=== PATIENT | male | born 1970 | race Caucasian/White ===

== ENCOUNTER 2018-06-15 09:40 | Emergency (ER) | payer MEDICARE, MEDICAID ==
[~2018-06-15] VITALS: Ht 172.7 cm; Wt 186.5 kg
[~2018-06-15 09:40] MED LIST: ASPI-611 PO; ATOR-2 PO; ATRIN INH; CANA300T PO; CHOL100046 PO; DOCU-28 PO; FURO-150 PO; GABA-532 PO; GABA600T2 PO; GEMF600T5 PO; GLIP10TA11 PO; HYDR-3972 PO; IBUP-1986 PO; INSU100V12 SQ; INSU100V36 SQ; IRBE75TA30 PO; LACT1CAP57 PO; LIRA0.6P SQ; LORA10TA7 PO; LORA1TAB PO; MAGN400C PO; METF10004 PO; OMEP20CA4 PO; POLY119P2 PO; POTA8CAP9 PO; PRIM50TA PO; RISP1TAB3 PO; SERT100T PO; SITA100T15 PO; TIZA4CAP PO; TRAZ-218 PO; VITC500T PO
[2018-06-15] MEDS ORDERED: LORazepam 2 mg/ml vial IV ONE (10:10)
[2018-06-15 10:30] LABS: BASOPHILS % (AUTO) 0.3 % (0-1); EOSINOPHILS # (AUTO) 0.1 X10'3 (0-0.9); EOSINOPHILS % (AUTO) 1.4 % (0-6); HEMATOCRIT 35.5 % (42.0-52.0); HEMOGLOBIN 12.2 g/dl (14.0-17.9); LYMPHOCYTES # (AUTO) 1.2 X10'3 (1.1-4.8); LYMPHOCYTES % (AUTO) 26.2 % (21-51); MEAN CORPUSCULAR HEMOGLOBIN 29.2 PG (27.0-31.0); MEAN CORPUSCULAR HGB CONC 34.3 % (33.0-36.5); MEAN PLATELET VOLUME 9.8 FL (7.4-10.4); MONOCYTES # (AUTO) 0.4 X10'3 (0-0.9); MONOCYTES % (AUTO) 8.5 % (2-12); NEUTROPHILS % (AUTO) 63.6 % (42-75); PLATELET COUNT 127 X10'3 (140-440); RED BLOOD COUNT 4.18 X10'6 (4.70-6.10); RED CELL DISTRIBUTION WIDTH 16.1 % (11.5-14.5); WHITE BLOOD COUNT 4.7 X10'3 (4.5-11.0)
[2018-06-15 10:38] VITALS: BP 148/78
[2018-06-15 10:43] LABS: ALANINE AMINOTRANSFERASE 38 U/L (12-78); ALBUMIN 3.2 G/DL (3.4-5.0); ALBUMIN/GLOBULIN RATIO 0.9 (1.1-1.5); ALKALINE PHOSPHATASE 104 IU/L (46-116); ANION GAP 9 (8-16); ASPARTATE AMINO TRANSFERASE 19 U/L (10-37); BILIRUBIN,TOTAL 0.5 MG/DL (0.1-1.0); BLOOD UREA NITROGEN 19 MG/DL (7-18); BUN/CREATININE RATIO 14.4 (5.4-32.0); CALCIUM 8.5 MG/DL (8.5-10.1); CHLORIDE 100 MMOL/L (99-107); CREATININE 1.32 MG/DL (0.60-1.10); GLUCOSE 377 MG/DL (70-104); POTASSIUM 4.5 MMOL/L (3.5-5.1); SODIUM 134 MMOL/L (135-145); TOTAL CARBON DIOXIDE 24.6 MMOL/L (24-32); TOTAL PROTEIN 6.9 G/DL (6.4-8.2); eGFR 58 ML/MIN
== END 2018-06-15 11:43 | disposition home or self-care (01) ==
LOC: ER 09:40
DX: E11.65 Type 2 diabetes mellitus with hyperglycemia (principal); E11.42 Type 2 diabetes mellitus with diabetic polyneuropathy; E86.0 Dehydration; I11.0 Hypertensive heart disease with heart failure; I50.9 Heart failure, unspecified; E78.00 Pure hypercholesterolemia, unspecified; J45.909 Unspecified asthma, uncomplicated; K21.9 Gastro-esophageal reflux disease without esophagitis; Z91.013 Allergy to seafood; Z79.82 Long term (current) use of aspirin; Z79.4 Long term (current) use of insulin; Z79.84 Long term (current) use of oral hypoglycemic drugs; Z79.899 Other long term (current) drug therapy
CPT/HCPCS: 36415; 80053; 85025; 96374; 99284; J2060

== ENCOUNTER 2018-07-04 22:54 | Inpatient (IN) | payer MEDICARE, MEDICAID ==
[~2018-07-04] VITALS: Ht 175.3 cm; Wt 190.0 kg
[~2018-07-04 22:54] MED LIST changes: +METF-438 PO; -METF10004 PO
[2018-07-04 23:22] LABS: BASOPHILS % (AUTO) 0.4 % (0-1); EOSINOPHILS # (AUTO) 0.1 X10'3 (0-0.9); EOSINOPHILS % (AUTO) 1.5 % (0-6); HEMATOCRIT 32.7 % (42.0-52.0); LYMPHOCYTES # (AUTO) 1.3 X10'3 (1.1-4.8); LYMPHOCYTES % (AUTO) 20.8 % (21-51); MEAN CORPUSCULAR HEMOGLOBIN 28.6 PG (27.0-31.0); MEAN CORPUSCULAR HGB CONC 33.8 % (33.0-36.5); MEAN CORPUSCULAR VOLUME 84.8 FL (78-98); MEAN PLATELET VOLUME 8.9 FL (7.4-10.4); MONOCYTES # (AUTO) 0.4 X10'3 (0-0.9); MONOCYTES % (AUTO) 6.3 % (2-12); NEUTROPHILS # (AUTO) 4.3 X10'3 (1.8-7.7); PLATELET COUNT 144 X10'3 (140-440); RED BLOOD COUNT 3.85 X10'6 (4.70-6.10); RED CELL DISTRIBUTION WIDTH 16.3 % (11.5-14.5); WHITE BLOOD COUNT 6.1 X10'3 (4.5-11.0)
[2018-07-04] MEDS ORDERED: nitroGLYCERIN 0.4mg/hour patch TD ONE (23:30)
[2018-07-04 23:31] LABS: PARTIAL THROMBOPLASTIN TIME 28 SECONDS (22-32); PROTHROMBIN TIME 10.2 SECONDS (9.0-12.0)
[2018-07-04] MEDS ORDERED: pantoprazole 40 MG vial IV ONE (23:35)
[2018-07-04 23:39] LABS: ALANINE AMINOTRANSFERASE 35 U/L (12-78); ALBUMIN/GLOBULIN RATIO 0.9 (1.1-1.5); ALKALINE PHOSPHATASE 99 IU/L (46-116); ANION GAP 7 (8-16); ASPARTATE AMINO TRANSFERASE 17 U/L (10-37); BILIRUBIN,TOTAL 0.3 MG/DL (0.1-1.0); BLOOD UREA NITROGEN 15 MG/DL (7-18); BUN/CREATININE RATIO 13.3 (5.4-32.0); CALCIUM 8.6 MG/DL (8.5-10.1); CHLORIDE 100 MMOL/L (99-107); CREATININE 1.13 MG/DL (0.60-1.10); GLUCOSE 293 MG/DL (70-104); POTASSIUM 4.2 MMOL/L (3.5-5.1); SODIUM 133 MMOL/L (135-145); TOTAL CARBON DIOXIDE 25.8 MMOL/L (24-32); TOTAL PROTEIN 6.4 G/DL (6.4-8.2); eGFR 69 ML/MIN
[2018-07-05] VITALS (16 sets, daily range): BP systolic 105–163; BP diastolic 49–79
[2018-07-05] MEDS ORDERED: bisacodyl 10mg suppository rectal RC PRN (02:50)
[2018-07-05] MEDS ORDERED: HYDROcodone/acetaminophen 5mg/325mg tablet PO PRN (02:50)
[2018-07-05] MEDS ORDERED: acetaminophen 650mg rectal suppository RC PRN (02:50)
[2018-07-05] MEDS ORDERED: morphine 2 MG/ML inj. syringe IV PRN (02:50)
[2018-07-05] MEDS ORDERED: magnesium hydroxide 30ml (MOM) UD suspension PO PRN (02:50)
[2018-07-05] MEDS ORDERED: acetaminophen 325mg tablet PO PRN ×2 (02:50)
[2018-07-05] MEDS ORDERED: diphenhydrAMINE 50 mg/ml inj IV PRN (02:50)
[2018-07-05] MEDS ORDERED: metoclopramide 5 mg/ml inj IV PRN (02:50)
[2018-07-05] MEDS ORDERED: diphenhydrAMINE 25mg capsule PO PRN (02:50)
[2018-07-05] MEDS ORDERED: HYDROcodone/acetaminophen 10/325mg tab PO PRN (02:50)
[2018-07-05] MEDS ORDERED: ondansetron/PF 4mg/2ml inj IV PRN (02:50)
[2018-07-05] MEDS ORDERED: HYDROmorphone 1 mg/ml syringe IV PRN ×2 (02:50)
[2018-07-05] MEDS ORDERED: LORazepam 1 MG tablet PO PRN (02:50)
[2018-07-05] MEDS ORDERED: mag hydrox/Alum hydrox/simeth 30ml oral suspension PO PRN (02:50)
[2018-07-05] MEDS ORDERED: dextrose 50%-water 50ml dispensing syringe IV PRN ×2 (03:05)
[2018-07-05] MEDS ORDERED: dextrose ORAL solution 15 GM/59 ML bottle PO PRN ×2 (03:05)
[2018-07-05] MEDS ORDERED: CAFFEINE CITRATE 60 MG/3 ML injection vial IV PRN (03:05)
[2018-07-05] MEDS ORDERED: metoprolol tartrate 1mg/ml inj IV PRN (03:05)
[2018-07-05] MEDS ORDERED: MESSAGE TO PHARMACY PO ONE (03:05)
[2018-07-05] MEDS ORDERED: regadenoson 0.4mg/5ml syringe IV ONE ×2 (03:05→08:58)
[2018-07-05] MEDS ORDERED: glucagon, human recombinant 1mg kit SUBCUT PRN (03:05)
[2018-07-05] MEDS ORDERED: regadenoson 0.4mg/5ml syringe IV PRN (03:11)
[2018-07-05 03:31] LABS: HEMOGLOBIN A1C 10.2 % (4.5-6.2)
[2018-07-05 03:38] LABS: LIPASE 191 U/L (73-393); MAGNESIUM 1.7 MG/DL (1.5-2.4); PHOSPHORUS 3.1 MG/DL (2.3-4.5)
[2018-07-05 04:53] LABS: D-DIMER < 0.19 MG/L FEU (0-0.50)
[2018-07-05] MEDS ORDERED: furosemide 10 MG/1 ML 10ml inj IV SCH (08:00)
[2018-07-05] MEDS ORDERED: CAFFEINE CITRATE 60 MG/3 ML injection vial IV ONE (08:58)
[2018-07-05] MEDS ORDERED: furosemide 40mg/4ml inj IV ONE (11:55)
[2018-07-05] MEDS: loratadine 10mg tablet PO SCH (12:10)
[2018-07-05] MEDS: docusate sod 100mg capsule PO SCH ×2 (12:10→21:01)
[2018-07-05] MEDS: aspirin 81mg tablet.DR PO SCH (12:11)
[2018-07-05] MEDS: atorvastatin 20mg tablet PO SCH (12:12)
[2018-07-05] MEDS: polyethylene glycol 3350 17gm powd pack PO SCH (12:12)
[2018-07-05] MEDS: pantoprazole 40mg Tablet.DR PO SCH (12:13)
[2018-07-05] MEDS: enoxaparin 30mg/0.3ml syringe SQ SCH ×2 (12:16→21:01)
[2018-07-05] MEDS: gabapentin 400mg capsule PO SCH ×3 (12:19→21:01)
[2018-07-05] MEDS: primidone 50mg tablet PO SCH (12:21)
[2018-07-05] MEDS: furosemide 40mg/4ml inj IV SCH ×2 (12:22→21:01)
[2018-07-05] MEDS: sertraline 50mg tablet PO SCH (13:13)
[2018-07-05] MEDS: insulin Lispro (HumaLOG) vial - multi-dose SQ SCH ×3 (13:35→21:00)
[2018-07-05] MEDS ORDERED: insulin glargine (Lantus) pen - multi-dose SQ SCH (21:00)
[2018-07-05] MEDS ORDERED: temazepam 15mg capsule PO PRN (21:00)
[2018-07-05] MEDS: traZODone 50mg tablet PO SCH (21:01)
[2018-07-05] MEDS: gabapentin 300mg capsule PO SCH (21:01)
[2018-07-05] MEDS: morphine 2 MG/ML inj. syringe IV PRN (21:30)
[2018-07-06 05:36] LABS: BASOPHILS % (AUTO) 0.2 % (0-1); EOSINOPHILS # (AUTO) 0.1 X10'3 (0-0.9); EOSINOPHILS % (AUTO) 1.3 % (0-6); HEMATOCRIT 33.3 % (42.0-52.0); HEMOGLOBIN 11.6 g/dl (14.0-17.9); LYMPHOCYTES # (AUTO) 1.1 X10'3 (1.1-4.8); LYMPHOCYTES % (AUTO) 20.4 % (21-51); MEAN CORPUSCULAR HEMOGLOBIN 29.2 PG (27.0-31.0); MEAN CORPUSCULAR HGB CONC 34.7 % (33.0-36.5); MEAN PLATELET VOLUME 8.9 FL (7.4-10.4); MONOCYTES # (AUTO) 0.5 X10'3 (0-0.9); MONOCYTES % (AUTO) 9.2 % (2-12); NEUTROPHILS # (AUTO) 3.6 X10'3 (1.8-7.7); NEUTROPHILS % (AUTO) 68.9 % (42-75); PLATELET COUNT 136 X10'3 (140-440); RED BLOOD COUNT 3.96 X10'6 (4.70-6.10); RED CELL DISTRIBUTION WIDTH 16.2 % (11.5-14.5); WHITE BLOOD COUNT 5.2 X10'3 (4.5-11.0)
[2018-07-06 05:53] LABS: ALANINE AMINOTRANSFERASE 37 U/L (12-78); ALBUMIN 3.2 G/DL (3.4-5.0); ALBUMIN/GLOBULIN RATIO 0.8 (1.1-1.5); ALKALINE PHOSPHATASE 70 IU/L (46-116); ANION GAP 7 (8-16); ASPARTATE AMINO TRANSFERASE 14 U/L (10-37); BILIRUBIN,TOTAL 0.7 MG/DL (0.1-1.0); BLOOD UREA NITROGEN 14 MG/DL (7-18); BUN/CREATININE RATIO 14.7 (5.4-32.0); CALCIUM 8.8 MG/DL (8.5-10.1); CHLORIDE 97 MMOL/L (99-107); CHOL/HDL RATIO 7.5 (0.00-4.99); CHOLESTEROL 120 MG/DL (0-200); CREATININE 0.95 MG/DL (0.60-1.10); GLUCOSE 354 MG/DL (70-104); HDL CHOLESTEROL 16 MG/DL (35-60); LDL CHOLESTEROL 54 MG/DL (50-100); POTASSIUM 3.9 MMOL/L (3.5-5.1); SODIUM 132 MMOL/L (135-145); TOTAL CARBON DIOXIDE 27.8 MMOL/L (24-32); TRIGLYCERIDES 495 MG/DL (20-135); eGFR 84 ML/MIN
[2018-07-06 06:43] VITALS: BP 153/55
[2018-07-06] MEDS: atorvastatin 20mg tablet PO SCH (07:34)
[2018-07-06] MEDS: aspirin 81mg tablet.DR PO SCH (07:36)
[2018-07-06] MEDS: gabapentin 400mg capsule PO SCH ×3 (07:36→20:48)
[2018-07-06] MEDS: docusate sod 100mg capsule PO SCH ×2 (07:36→20:48)
[2018-07-06] MEDS: pantoprazole 40mg Tablet.DR PO SCH (07:36)
[2018-07-06] MEDS: loratadine 10mg tablet PO SCH (07:37)
[2018-07-06] MEDS: enoxaparin 30mg/0.3ml syringe SQ SCH ×2 (07:38→20:49)
[2018-07-06] MEDS: sertraline 50mg tablet PO SCH (07:38)
[2018-07-06] MEDS: polyethylene glycol 3350 17gm powd pack PO SCH (07:38)
[2018-07-06] MEDS: furosemide 40mg/4ml inj IV SCH ×2 (07:39→20:47)
[2018-07-06] MEDS: primidone 50mg tablet PO SCH (07:54)
[2018-07-06] MEDS ORDERED: insulin glargine (Lantus) pen - multi-dose SQ SCH ×2 (09:55→21:00)
[2018-07-06 10:00] VITALS: BP 147/78
[2018-07-06] MEDS: insulin Lispro (HumaLOG) vial - multi-dose SQ SCH ×3 (10:49→18:36)
[2018-07-06 18:00] VITALS: BP 140/78
[2018-07-06] MEDS: insulin glargine (Lantus) pen - multi-dose SQ SCH (20:40)
[2018-07-06] MEDS: traZODone 50mg tablet PO SCH (20:48)
[2018-07-06] MEDS: gabapentin 300mg capsule PO SCH (20:48)
[2018-07-06 22:00] VITALS: BP 115/64
[2018-07-07 05:43] LABS: BASOPHILS % (AUTO) 0.3 % (0-1); EOSINOPHILS # (AUTO) 0.1 X10'3 (0-0.9); EOSINOPHILS % (AUTO) 1.4 % (0-6); HEMATOCRIT 38.1 % (42.0-52.0); LYMPHOCYTES # (AUTO) 1.2 X10'3 (1.1-4.8); LYMPHOCYTES % (AUTO) 23.7 % (21-51); MEAN CORPUSCULAR HEMOGLOBIN 28.7 PG (27.0-31.0); MEAN CORPUSCULAR HGB CONC 34.1 % (33.0-36.5); MEAN CORPUSCULAR VOLUME 84.3 FL (78-98); MEAN PLATELET VOLUME 9.5 FL (7.4-10.4); MONOCYTES # (AUTO) 0.4 X10'3 (0-0.9); MONOCYTES % (AUTO) 7.6 % (2-12); NEUTROPHILS # (AUTO) 3.3 X10'3 (1.8-7.7); PLATELET COUNT 147 X10'3 (140-440); RED BLOOD COUNT 4.52 X10'6 (4.70-6.10); RED CELL DISTRIBUTION WIDTH 16.2 % (11.5-14.5); WHITE BLOOD COUNT 4.9 X10'3 (4.5-11.0)
[2018-07-07 05:58] LABS: ALANINE AMINOTRANSFERASE 39 U/L (12-78); ALBUMIN 3.4 G/DL (3.4-5.0); ALBUMIN/GLOBULIN RATIO 0.8 (1.1-1.5); ALKALINE PHOSPHATASE 71 IU/L (46-116); ANION GAP 8 (8-16); ASPARTATE AMINO TRANSFERASE 26 U/L (10-37); BILIRUBIN,TOTAL 0.7 MG/DL (0.1-1.0); BLOOD UREA NITROGEN 16 MG/DL (7-18); CALCIUM 9.3 MG/DL (8.5-10.1); CHLORIDE 95 MMOL/L (99-107); GLUCOSE 334 MG/DL (70-104); POTASSIUM 3.7 MMOL/L (3.5-5.1); SODIUM 132 MMOL/L (135-145); TOTAL CARBON DIOXIDE 28.6 MMOL/L (24-32); TOTAL PROTEIN 7.5 G/DL (6.4-8.2); eGFR 79 ML/MIN
[2018-07-07 06:00] VITALS: BP 147/77
[2018-07-07] MEDS: insulin Lispro (HumaLOG) vial - multi-dose SQ SCH ×3 (08:22→19:54)
[2018-07-07] MEDS: insulin glargine (Lantus) pen - multi-dose SQ SCH ×2 (08:23→20:00)
[2018-07-07] MEDS: docusate sod 100mg capsule PO SCH ×2 (08:28→20:08)
[2018-07-07] MEDS: enoxaparin 30mg/0.3ml syringe SQ SCH ×2 (08:28→20:08)
[2018-07-07] MEDS: furosemide 40mg/4ml inj IV SCH ×2 (08:28→19:59)
[2018-07-07] MEDS: atorvastatin 20mg tablet PO SCH (08:29)
[2018-07-07] MEDS: sertraline 50mg tablet PO SCH (08:29)
[2018-07-07] MEDS: loratadine 10mg tablet PO SCH (08:29)
[2018-07-07] MEDS: primidone 50mg tablet PO SCH (08:29)
[2018-07-07] MEDS: aspirin 81mg tablet.DR PO SCH (08:29)
[2018-07-07] MEDS: gabapentin 400mg capsule PO SCH ×3 (08:30→20:08)
[2018-07-07] MEDS: polyethylene glycol 3350 17gm powd pack PO SCH (08:30)
[2018-07-07] MEDS: pantoprazole 40mg Tablet.DR PO SCH (08:30)
[2018-07-07 10:00] VITALS: BP 132/73
[2018-07-07] MEDS: morphine 2 MG/ML inj. syringe IV PRN ×2 (12:26→16:26)
[2018-07-07] MEDS: nystatin 15 GM powder TP SCH ×2 (13:15→21:54)
[2018-07-07] MEDS: nitroGLYCERIN 0.4mg SUBLingual tab SL PRN ×2 (15:38→15:47)
[2018-07-07 18:00] VITALS: BP 144/67
[2018-07-07] MEDS: traZODone 50mg tablet PO SCH (20:08)
[2018-07-07] MEDS: gabapentin 300mg capsule PO SCH (20:08)
[2018-07-07 22:00] VITALS: BP 137/71
[2018-07-08 05:12] LABS: BASOPHILS % (AUTO) 0.4 % (0-1); EOSINOPHILS # (AUTO) 0.1 X10'3 (0-0.9); EOSINOPHILS % (AUTO) 2.2 % (0-6); HEMATOCRIT 38.2 % (42.0-52.0); HEMOGLOBIN 12.8 g/dl (14.0-17.9); LYMPHOCYTES # (AUTO) 1.4 X10'3 (1.1-4.8); LYMPHOCYTES % (AUTO) 26.9 % (21-51); MEAN CORPUSCULAR HEMOGLOBIN 28.1 PG (27.0-31.0); MEAN CORPUSCULAR HGB CONC 33.5 % (33.0-36.5); MEAN PLATELET VOLUME 9.1 FL (7.4-10.4); MONOCYTES # (AUTO) 0.4 X10'3 (0-0.9); MONOCYTES % (AUTO) 8.1 % (2-12); NEUTROPHILS # (AUTO) 3.3 X10'3 (1.8-7.7); NEUTROPHILS % (AUTO) 62.4 % (42-75); PLATELET COUNT 162 X10'3 (140-440); RED BLOOD COUNT 4.55 X10'6 (4.70-6.10); RED CELL DISTRIBUTION WIDTH 16.3 % (11.5-14.5); WHITE BLOOD COUNT 5.3 X10'3 (4.5-11.0)
[2018-07-08 05:31] LABS: ALANINE AMINOTRANSFERASE 38 U/L (12-78); ALBUMIN 3.3 G/DL (3.4-5.0); ALBUMIN/GLOBULIN RATIO 0.8 (1.1-1.5); ALKALINE PHOSPHATASE 71 IU/L (46-116); ANION GAP 9 (8-16); ASPARTATE AMINO TRANSFERASE 33 U/L (10-37); BILIRUBIN,TOTAL 0.8 MG/DL (0.1-1.0); BLOOD UREA NITROGEN 18 MG/DL (7-18); BUN/CREATININE RATIO 17.6 (5.4-32.0); CHLORIDE 95 MMOL/L (99-107); CREATININE 1.02 MG/DL (0.60-1.10); GLUCOSE 257 MG/DL (70-104); POTASSIUM 3.8 MMOL/L (3.5-5.1); SODIUM 133 MMOL/L (135-145); TOTAL CARBON DIOXIDE 29.1 MMOL/L (24-32); TOTAL PROTEIN 7.3 G/DL (6.4-8.2); eGFR 78 ML/MIN
[2018-07-08 06:00] VITALS: BP 148/76
[2018-07-08] MEDS: polyethylene glycol 3350 17gm powd pack PO SCH (07:43)
[2018-07-08] MEDS: loratadine 10mg tablet PO SCH (07:47)
[2018-07-08] MEDS: gabapentin 400mg capsule PO SCH ×2 (07:47→13:11)
[2018-07-08] MEDS: pantoprazole 40mg Tablet.DR PO SCH (07:47)
[2018-07-08] MEDS: aspirin 81mg tablet.DR PO SCH (07:47)
[2018-07-08] MEDS: atorvastatin 20mg tablet PO SCH (07:47)
[2018-07-08] MEDS: sertraline 50mg tablet PO SCH (07:47)
[2018-07-08] MEDS: docusate sod 100mg capsule PO SCH (07:47)
[2018-07-08] MEDS: primidone 50mg tablet PO SCH (07:48)
[2018-07-08] MEDS: enoxaparin 30mg/0.3ml syringe SQ SCH (07:50)
[2018-07-08] MEDS: furosemide 40mg/4ml inj IV SCH (07:50)
[2018-07-08] MEDS: nystatin 15 GM powder TP SCH ×2 (08:00→13:13)
[2018-07-08] MEDS: insulin glargine (Lantus) pen - multi-dose SQ SCH (08:59)
[2018-07-08] MEDS: insulin Lispro (HumaLOG) vial - multi-dose SQ SCH ×2 (09:01→13:35)
[2018-07-08 10:00] VITALS: BP 142/61
== END 2018-07-08 17:11 | disposition home or self-care (01) | DRG 392 ==
LOC: ER 22:54 → ED HOLD 07-05 02:48 → EDBEDREQ 07-05 03:32 → ORTHO 4S 07-05 04:05
PROVIDERS: ADMIT Family Medicine; ATTEND Internal Medicine
PROC: 4A02XM4 Measurement of Cardiac Total Activity, External Approach (ICD-10-PCS; 2018-07-05)
PROC: 3E033HZ Introduction of Radioactive Substance into Peripheral Vein, Percutaneous Approach (ICD-10-PCS; 2018-07-05)
PROC: 5A09357 Assistance with Respiratory Ventilation, Less than 24 Consecutive Hours, Continuous Positive Airway Pressure (ICD-10-PCS; principal; 2018-07-08)
DX: R10.13 Epigastric pain (principal); Z68.44 Body mass index [BMI] 60.0-69.9, adult; I27.81 Cor pulmonale (chronic); E66.01 Morbid (severe) obesity due to excess calories; E11.42 Type 2 diabetes mellitus with diabetic polyneuropathy; E78.00 Pure hypercholesterolemia, unspecified; E78.5 Hyperlipidemia, unspecified; I10 Essential (primary) hypertension; F32.9 Major depressive disorder, single episode, unspecified; D64.9 Anemia, unspecified; E11.65 Type 2 diabetes mellitus with hyperglycemia; F41.9 Anxiety disorder, unspecified; G25.0 Essential tremor; G47.33 Obstructive sleep apnea (adult) (pediatric); J45.909 Unspecified asthma, uncomplicated; K21.9 Gastro-esophageal reflux disease without esophagitis; Z91.013 Allergy to seafood; Z79.899 Other long term (current) drug therapy; Z79.82 Long term (current) use of aspirin; Z79.4 Long term (current) use of insulin; Z87.891 Personal history of nicotine dependence; Z82.49 Family history of ischemic heart disease and other diseases of the circulatory system; Z83.3 Family history of diabetes mellitus
CPT/HCPCS: 36415; 71045; 78452; 80053; 80061; 80184; 80188; 82948; 83036; 83690; 83735; 83880; 84100; 84484; 85025; 85379; 85610; 85730; 87070; 93005; 93017; 93306; 96374; 99285; A9500; C9113; J1650; J1815; J1940; J2270

== ENCOUNTER 2019-03-25 16:54 | Emergency (ER) | payer MEDICARE, MEDICAID ==
[~2019-03-25] VITALS: Ht 175.3 cm; Wt 201.8 kg
[~2019-03-25 16:54] MED LIST changes: -ATRIN INH; -CANA300T PO; -DOCU-28 PO; +GABA600T13 PO; -GABA600T2 PO; -GEMF600T5 PO; -GLIP10TA11 PO; -HYDR-3972 PO; -IBUP-1986 PO; -INSU100V12 SQ; -IRBE75TA30 PO; -LIRA0.6P SQ; -MAGN400C PO; +MECL12.584 PO; +ONDA8TAB6 PO; -RISP1TAB3 PO; -SITA100T15 PO; -TIZA4CAP PO; -TRAZ-218 PO; +TRAZ-251 PO
[2019-03-25 17:25] LABS: PARTIAL THROMBOPLASTIN TIME 25 SECONDS (22-32)
[2019-03-25 17:27] LABS: ALANINE AMINOTRANSFERASE 29 U/L (12-78); ALBUMIN 3.4 G/DL (3.4-5.0); ALBUMIN/GLOBULIN RATIO 0.9 (1.1-1.5); ALKALINE PHOSPHATASE 76 IU/L (46-116); ANION GAP 9 (8-16); ASPARTATE AMINO TRANSFERASE 18 U/L (10-37); BILIRUBIN,TOTAL 0.4 MG/DL (0.1-1.0); BLOOD UREA NITROGEN 21 MG/DL (7-18); BUN/CREATININE RATIO 16.7 (5.4-32.0); CALCIUM 8.9 MG/DL (8.5-10.1); CHLORIDE 102 MMOL/L (99-107); CREATININE 1.26 MG/DL (0.60-1.10); GLUCOSE 260 MG/DL (70-104); POTASSIUM 4.7 MMOL/L (3.5-5.1); SODIUM 136 MMOL/L (135-145); TOTAL CARBON DIOXIDE 25.1 MMOL/L (24-32); TOTAL PROTEIN 7.4 G/DL (6.4-8.2); eGFR 61 ML/MIN
[2019-03-25 18:05] LABS: BASOPHILS # (AUTO) 0.1 X10'3 (0-0.2); BASOPHILS % (AUTO) 1.3 % (0-1); EOSINOPHILS # (AUTO) 0.1 X10'3 (0-0.9); EOSINOPHILS % (AUTO) 1.6 % (0-6); HEMATOCRIT 37.5 % (42.0-52.0); HEMOGLOBIN 12.3 g/dl (14.0-17.9); LYMPHOCYTES # (AUTO) 1.4 X10'3 (1.1-4.8); MEAN CORPUSCULAR HGB CONC 32.9 g/dL (33.0-36.5); MEAN CORPUSCULAR VOLUME 82.1 FL (78-98); MEAN PLATELET VOLUME 8.4 FL (7.4-10.4); MONOCYTES # (AUTO) 0.7 X10'3 (0-0.9); MONOCYTES % (AUTO) 10.1 % (2-12); NEUTROPHILS # (AUTO) 4.4 X10'3 (1.8-7.7); PLATELET COUNT 158 X10'3 (140-440); RED BLOOD COUNT 4.56 X10'6 (4.70-6.10); RED CELL DISTRIBUTION WIDTH 18.8 % (11.5-14.5); WHITE BLOOD COUNT 6.7 X10'3 (4.5-11.0)
[2019-03-25] MEDS ORDERED: GEMF600T89 PO (18:09)
[2019-03-25] MEDS ORDERED: EMPA10TA PO (18:09)
[2019-03-25] MEDS ORDERED: BENZ1TAB7 PO (18:09)
[2019-03-25] MEDS ORDERED: IRBE75TA9 PO (18:09)
[2019-03-25] MEDS ORDERED: INSU200I (18:09)
[2019-03-25] MEDS ORDERED: GABA800T11 PO (18:09)
[2019-03-25] MEDS ORDERED: PROP20TA6 PO (18:09)
[2019-03-25] MEDS ORDERED: INSU300I3 (18:11)
[2019-03-25] MEDS ORDERED: DULA1.5P (18:11)
[2019-03-25] MEDS ORDERED: MELA3TAB PO (18:11)
[2019-03-25 18:22] LABS: ANISOCYTOSIS 2+; PLATELET ESTIMATE NORMAL; POLYCHROMASIA FEW
[2019-03-25 19:52] LABS: LIPASE 173 U/L (73-393)
[2019-03-25 21:31] VITALS: BP 148/95
== END 2019-03-25 21:34 | disposition home or self-care (01) ==
LOC: ER 16:54
DX: R07.89 Other chest pain (principal); R06.02 Shortness of breath; R05 Cough; E11.42 Type 2 diabetes mellitus with diabetic polyneuropathy; E78.00 Pure hypercholesterolemia, unspecified; I10 Essential (primary) hypertension; J45.909 Unspecified asthma, uncomplicated; K21.9 Gastro-esophageal reflux disease without esophagitis; Z91.013 Allergy to seafood; Z79.82 Long term (current) use of aspirin; Z79.84 Long term (current) use of oral hypoglycemic drugs; Z79.4 Long term (current) use of insulin; Z79.899 Other long term (current) drug therapy
CPT/HCPCS: 36415; 71045; 80053; 83690; 84484; 85025; 85610; 85730; 93005; 99284

== ENCOUNTER 2019-05-21 23:17 | Emergency (ER) | payer MEDICARE, MEDICAID ==
[~2019-05-21] VITALS: Ht 175.3 cm; Wt 194.0 kg
[~2019-05-21 23:17] MED LIST changes: -ATOR-2 PO; +BENZ1TAB7 PO; +DULA1.5P SQ; +EMPA10TA PO; -GABA600T13 PO; +GABA800T11 PO; +GEMF600T89 PO; -INSU100V36 SQ; +INSU200I SQ; +INSU300I3 SQ; +IRBE75TA9 PO; -LACT1CAP57 PO; -LORA1TAB PO; -MECL12.584 PO; +MELA3TAB64 PO; +POTA8CAP20 PO; -POTA8CAP9 PO; +PROP20TA6 PO; -SERT100T PO
[2019-05-21 23:44] LABS: BASOPHILS % (AUTO) 0.5 % (0-1); EOSINOPHILS # (AUTO) 0.1 X10'3 (0-0.9); EOSINOPHILS % (AUTO) 0.6 % (0-6); HEMATOCRIT 37.7 % (42.0-52.0); HEMOGLOBIN 12.2 g/dl (14.0-17.9); LYMPHOCYTES # (AUTO) 0.8 X10'3 (1.1-4.8); LYMPHOCYTES % (AUTO) 7.5 % (21-51); MEAN CORPUSCULAR HEMOGLOBIN 26.9 PG (27.0-31.0); MEAN CORPUSCULAR HGB CONC 32.4 g/dL (33.0-36.5); MEAN CORPUSCULAR VOLUME 83.3 FL (78-98); MEAN PLATELET VOLUME 7.8 FL (7.4-10.4); MONOCYTES # (AUTO) 0.4 X10'3 (0-0.9); NEUTROPHILS # (AUTO) 8.8 X10'3 (1.8-7.7); NEUTROPHILS % (AUTO) 87.4 % (42-75); PLATELET COUNT 162 X10'3 (140-440); RED BLOOD COUNT 4.53 X10'6 (4.70-6.10); RED CELL DISTRIBUTION WIDTH 17.9 % (11.5-14.5); WHITE BLOOD COUNT 10.1 X10'3 (4.5-11.0)
[2019-05-21 23:53] LABS: ALANINE AMINOTRANSFERASE 30 U/L (12-78); ALBUMIN 3.3 G/DL (3.4-5.0); ALBUMIN/GLOBULIN RATIO 0.8 (1.1-1.5); ALKALINE PHOSPHATASE 73 IU/L (46-116); ANION GAP 9 (8-16); ASPARTATE AMINO TRANSFERASE 16 U/L (10-37); BILIRUBIN,TOTAL 0.5 MG/DL (0.1-1.0); BLOOD UREA NITROGEN 16 MG/DL (7-18); BUN/CREATININE RATIO 13.4 (5.4-32.0); CALCIUM 8.9 MG/DL (8.5-10.1); CHLORIDE 104 MMOL/L (99-107); CREATININE 1.19 MG/DL (0.60-1.10); GLUCOSE 141 MG/DL (70-104); POTASSIUM 4.6 MMOL/L (3.5-5.1); SODIUM 141 MMOL/L (135-145); TOTAL CARBON DIOXIDE 28.4 MMOL/L (24-32); TOTAL PROTEIN 7.2 G/DL (6.4-8.2); eGFR 65 ML/MIN
[2019-05-22 01:25] LABS: CLARITY,URINE CLEAR (Clear); COLOR,URINE YELLOW (Yellow); GLUCOSE, URINE >=1000 mg/dl (Neg); KETONES,URINE NEGATIVE (Neg); LEUKOCYTE ESTERASE ,URINE NEGATIVE (Neg); NITRITES, URINE NEGATIVE (Neg); OCCULT BLOOD,URINE NEGATIVE (Neg); PROTEIN,URINE NEGATIVE (Neg); UROBILINOGEN,URINE 0.2 E.U/dL (0.2-1.0)
[2019-05-22 01:26] LABS: ETHANOL < 0.010 GM/DL (0.0-0.010)
[2019-05-22 01:32] LABS: UA COLLECTION TYPE URINAL
[2019-05-22] MEDS ORDERED: LORazepam 2 mg/ml vial IV ONE (01:45)
[2019-05-22 02:05] VITALS: BP 149/71
[2019-05-22 02:31] LABS: BACTERIA,URINE NONE SEEN /HPF (Neg); RBC,URINE 0-2 /HPF (0-2); SQUAMOUS EPITHELIAL CELL,UR FEW /LPF (FEW); WBC,URINE NONE SEEN /HPF (0-4)
[2019-05-22 02:32] LABS: MUCUS STRANDS NONE SEEN /LPF (Neg); STARCH,URINE FEW /HPF (NEGATIVE)
== END 2019-05-22 02:18 | disposition home or self-care (01) ==
LOC: ER 23:17
DX: R25.1 Tremor, unspecified (principal); M54.9 Dorsalgia, unspecified; E66.01 Morbid (severe) obesity due to excess calories; E78.00 Pure hypercholesterolemia, unspecified; I10 Essential (primary) hypertension; J45.909 Unspecified asthma, uncomplicated; G47.30 Sleep apnea, unspecified; K21.9 Gastro-esophageal reflux disease without esophagitis; E11.9 Type 2 diabetes mellitus without complications; F41.9 Anxiety disorder, unspecified; F32.9 Major depressive disorder, single episode, unspecified; Z87.891 Personal history of nicotine dependence; Z91.013 Allergy to seafood; Z79.82 Long term (current) use of aspirin; Z79.4 Long term (current) use of insulin; Z79.899 Other long term (current) drug therapy
CPT/HCPCS: 36415; 80053; 80320; 81001; 85025; 85610; 96374; 99283; J2060

== ENCOUNTER 2019-05-25 10:17 | Inpatient (IN) | payer MEDICARE, MEDICAID ==
[~2019-05-25] VITALS: Ht 172.7 cm; Wt 220.0 kg
[2019-05-25] MEDS ORDERED: acetaminophen 325mg tablet PO STA (10:43)
[2019-05-25] MEDS ORDERED: CefTRIAXone 2gm/D5W 50ml 50 ML IV ONE (10:45)
[2019-05-25] MEDS ORDERED: normal saline 1000ML IV soln IV ONE (10:45)
--- NOTE | 2019-05-25 11:10 | NUR ---
BANDAGE REMOVED FROM LEFT HEEL: CRACKED SKIN NOTED
[2019-05-25 11:35] LABS: ALANINE AMINOTRANSFERASE 41 U/L (12-78); ALBUMIN 2.6 G/DL (3.4-5.0); ALBUMIN/GLOBULIN RATIO 0.6 (1.1-1.5); ALKALINE PHOSPHATASE 58 IU/L (46-116); ANION GAP 9 (8-16); ASPARTATE AMINO TRANSFERASE 28 U/L (10-37); BILIRUBIN,TOTAL 0.8 MG/DL (0.1-1.0); BLOOD UREA NITROGEN 29 MG/DL (7-18); BUN/CREATININE RATIO 16.2 (5.4-32.0); CALCIUM 8.4 MG/DL (8.5-10.1); CHLORIDE 101 MMOL/L (99-107); CREATININE 1.79 MG/DL (0.60-1.10); GLUCOSE 205 MG/DL (70-104); MAGNESIUM 2.3 MG/DL (1.5-2.4); POTASSIUM 3.6 MMOL/L (3.5-5.1); SODIUM 134 MMOL/L (135-145); TOTAL CARBON DIOXIDE 23.7 MMOL/L (24-32); TOTAL PROTEIN 7.1 G/DL (6.4-8.2); eGFR 41 ML/MIN
[2019-05-25 11:38] LABS: PARTIAL THROMBOPLASTIN TIME 37 SECONDS (22-32)
[2019-05-25 11:50] LABS: BASOPHILS % (AUTO) 0.5 % (0-1); EOSINOPHILS % (AUTO) 0.4 % (0-6); HEMATOCRIT 29.3 % (42.0-52.0); HEMOGLOBIN 9.5 g/dl (14.0-17.9); LYMPHOCYTES % (AUTO) 12.9 % (21-51); MEAN CORPUSCULAR HEMOGLOBIN 26.8 PG (27.0-31.0); MEAN CORPUSCULAR HGB CONC 32.6 g/dL (33.0-36.5); MEAN CORPUSCULAR VOLUME 82.3 FL (78-98); MEAN PLATELET VOLUME 8.7 FL (7.4-10.4); MONOCYTES # (AUTO) 0.8 X10'3 (0-0.9); MONOCYTES % (AUTO) 9.6 % (2-12); NEUTROPHILS # (AUTO) 6.2 X10'3 (1.8-7.7); NEUTROPHILS % (AUTO) 76.6 % (42-75); PLATELET COUNT 130 X10'3 (140-440); RED BLOOD COUNT 3.56 X10'6 (4.70-6.10); RED CELL DISTRIBUTION WIDTH 18.4 % (11.5-14.5); WHITE BLOOD COUNT 8.1 X10'3 (4.5-11.0)
[2019-05-25 12:11] LABS: CLARITY,URINE CLOUDY (Clear); COLOR,URINE YELLOW (Yellow); GLUCOSE, URINE >=1000 mg/dl (Neg); KETONES,URINE NEGATIVE (Neg); LEUKOCYTE ESTERASE ,URINE TRACE (Neg); NITRITES, URINE NEGATIVE (Neg); OCCULT BLOOD,URINE TRACE-INTACT (Neg); PROTEIN,URINE NEGATIVE (Neg); UROBILINOGEN,URINE 0.2 E.U/dL (0.2-1.0)
[2019-05-25 12:15] LABS: UA COLLECTION TYPE CLN CATCH MIDSTREAM
[2019-05-25 12:17] LABS: SQUAMOUS EPITHELIAL CELL,UR MANY /LPF (FEW)
[2019-05-25 12:18] LABS: BACTERIA,URINE 1+ /HPF (Neg); RBC,URINE 0-2 /HPF (0-2); WBC CLUMPS,URINE FEW /HPF (NEGATIVE)
[2019-05-25 12:19] LABS: TRANSITIONAL EPI CELLS,URINE MODERATE /HPF
[2019-05-25] MEDS ORDERED: TIZA4TAB5 PO (12:58)
[2019-05-25] MEDS ORDERED: OMEG1CAP2 PO (12:58)
[2019-05-25] MEDS ORDERED: BENZ1TAB7 PO (12:58)
[2019-05-25] MEDS ORDERED: MAGN100T5 PO (12:58)
[2019-05-25] MEDS ORDERED: VITA1TAB20 PO (12:58)
[2019-05-25] MEDS ORDERED: GARL400T14 PO (12:58)
[2019-05-25] MEDS ORDERED: EMPA25TA PO (12:58)
--- NOTE | 2019-05-25 13:00 | NUR ---
Patient in room [facility]. I have received report from Tereso SMART and had the opportunity to ask questions and assume patient care.
[2019-05-25] MEDS ORDERED: BUDE10.2 PO (13:01)
[2019-05-25] MEDS ORDERED: ALBU17AE26 INH (13:01)
[2019-05-25 14:14] VITALS: BP 94/55
[2019-05-25] MEDS ORDERED: magnesium 4gm in 100ml NS 100 ML IV PRN (14:45)
[2019-05-25] MEDS ORDERED: magnesium 2GM in 50ml NS 50 ML IV PRN (14:45)
[2019-05-25] MEDS ORDERED: magnesium Cl slow-release 64mg tablet PO PRN (14:45)
[2019-05-25] MEDS ORDERED: potassium CL 10mEq/100ml bag 100 ML IV PRN ×2 (14:45)
[2019-05-25] MEDS ORDERED: ondansetron/PF 4mg/2ml inj IV PRN (14:45)
[2019-05-25] MEDS ORDERED: acetaminophen 325mg tablet PO PRN (14:45)
[2019-05-25] MEDS ORDERED: potassium Cl 20 mEq SR tablet PO PRN ×2 (14:45)
[2019-05-25] MEDS: normal saline 1000ml 1,000 ML IV SCH (16:36)
[2019-05-25] MEDS: ceFAZolin 1GM/D5W- ADD-VANTAGE 50 ML IV SCH ×2 (16:40→23:35)
[2019-05-25 18:00] VITALS: BP 123/44
--- NOTE | 2019-05-25 18:15 | NUR ---
Patient in room [facility]. I have received report from BING Martinez and had the opportunity to ask questions and assume patient care.
--- NOTE | 2019-05-25 18:30 | NUR ---
Problems reprioritized. Patient report given, questions answered & plan of care reviewed with Stephen SMART.
[2019-05-25] MEDS: heparin, porcine 5000 units/ml vial SQ SCH (19:15)
[2019-05-25] MEDS ORDERED: pneumococcal 23-VAL P-sac vacc 25 mcg/0.5ml vial IMVAC ONE (19:35)
[2019-05-25 19:41] LABS: HEMOGLOBIN A1C 6.5 % (4.5-6.2)
[2019-05-25] MEDS ORDERED: dextrose 50%-water 50ml dispensing syringe IV PRN ×2 (20:50)
[2019-05-25] MEDS ORDERED: dextrose ORAL solution 15 GM/59 ML bottle PO PRN ×2 (20:50)
[2019-05-25] MEDS ORDERED: tizanidine 4mg tablet PO PRN (20:50)
[2019-05-25] MEDS ORDERED: MESSAGE TO PHARMACY PO ONE (20:50)
[2019-05-25] MEDS ORDERED: glucagon, human recombinant 1mg kit SUBCUT PRN (20:50)
[2019-05-25] MEDS: insulin Lispro (HumaLOG) vial - multi-dose SQ SCH (21:00)
[2019-05-25] MEDS: insulin glargine (Lantus) pen - multi-dose SQ SCH (21:00)
[2019-05-25] MEDS ORDERED: insulin glargine (Lantus) pen - multi-dose SQ SCH (21:00)
[2019-05-25] MEDS ORDERED: albuterol 2.5 MG/3 ML nebule NEB PRN (22:15)
[2019-05-25] MEDS: traZODone 50mg tablet PO SCH (22:28)
[2019-05-25] MEDS: morphine 2 MG/ML inj. syringe IV PRN (22:28)
[2019-05-25] MEDS: lactobacillus rhamnosus 10,000 MMU CELLS/CAPSULE PO SCH (22:29)
[2019-05-25] MEDS: benztropine 1mg tablet PO SCH (22:30)
[2019-05-25] MEDS: gabapentin 400mg capsule PO SCH (23:35)
[2019-05-26] VITALS: BP 153/47
[2019-05-26] MEDS: normal saline 1000ml 1,000 ML IV SCH ×3 (00:43→22:45)
[2019-05-26] MEDS: albuterol 2.5 MG/3 ML nebule NEB SCH ×4 (02:56→21:13)
[2019-05-26] MEDS: morphine 2 MG/ML inj. syringe IV PRN (04:12)
[2019-05-26 05:18] LABS: BASOPHILS # (AUTO) 0.1 X10'3 (0-0.2); BASOPHILS % (AUTO) 0.6 % (0-1); EOSINOPHILS % (AUTO) 0.6 % (0-6); HEMATOCRIT 26.6 % (42.0-52.0); HEMOGLOBIN 8.8 g/dl (14.0-17.9); LYMPHOCYTES # (AUTO) 1.1 X10'3 (1.1-4.8); LYMPHOCYTES % (AUTO) 13.1 % (21-51); MEAN PLATELET VOLUME 8.4 FL (7.4-10.4); MONOCYTES # (AUTO) 0.8 X10'3 (0-0.9); MONOCYTES % (AUTO) 9.8 % (2-12); NEUTROPHILS # (AUTO) 6.2 X10'3 (1.8-7.7); NEUTROPHILS % (AUTO) 75.9 % (42-75); PLATELET COUNT 133 X10'3 (140-440); RED BLOOD COUNT 3.25 X10'6 (4.70-6.10); RED CELL DISTRIBUTION WIDTH 18.8 % (11.5-14.5); WHITE BLOOD COUNT 8.1 X10'3 (4.5-11.0)
[2019-05-26 05:25] LABS: ALBUMIN 2.3 G/DL (3.4-5.0); ANION GAP 11 (8-16); BLOOD UREA NITROGEN 18 MG/DL (7-18); BUN/CREATININE RATIO 14.3 (5.4-32.0); CALCIUM 8.5 MG/DL (8.5-10.1); CHLORIDE 104 MMOL/L (99-107); CREATININE 1.26 MG/DL (0.60-1.10); GLUCOSE 123 MG/DL (70-104); MAGNESIUM 2.3 MG/DL (1.5-2.4); POTASSIUM 3.9 MMOL/L (3.5-5.1); SODIUM 138 MMOL/L (135-145); TOTAL CARBON DIOXIDE 22.6 MMOL/L (24-32); eGFR 61 ML/MIN
[2019-05-26 06:30] VITALS: BP 126/60
--- NOTE | 2019-05-26 06:33 | NUR ---
Patient in room [facility]. I have received report from Stephen and had the opportunity to ask questions and assume patient care.
[2019-05-26] MEDS: HYDROcodone/acetaminophen 5mg/325mg tablet PO PRN ×3 (06:40→17:05)
[2019-05-26] MEDS: K and/or MAG REPLACEMENT MC SCH (06:43)
--- NOTE | 2019-05-26 06:43 | NUR ---
Problems reprioritized. Patient report given, questions answered & plan of care reviewed with BING Greene.
[2019-05-26] MEDS: ceFAZolin 1GM/D5W- ADD-VANTAGE 50 ML IV SCH ×3 (07:59→23:08)
[2019-05-26] MEDS: pantoprazole 40mg Tablet.DR PO SCH (07:59)
[2019-05-26] MEDS: gabapentin 400mg capsule PO SCH ×3 (07:59→23:08)
[2019-05-26] MEDS: metFORMIN 500mg tablet PO SCH ×2 (07:59→19:30)
[2019-05-26] MEDS: potassium chloride 8mEq ER tablet PO SCH ×2 (07:59→19:33)
[2019-05-26] MEDS: benztropine 1mg tablet PO SCH ×2 (07:59→21:04)
[2019-05-26] MEDS: gemfibrozil 600mg tablet PO SCH ×2 (07:59→19:33)
[2019-05-26] MEDS: vitamin B comp w/Vit. C tab 1 TAB TABLET PO SCH ×2 (07:59→19:33)
[2019-05-26] MEDS: aspirin 81mg tablet.DR PO SCH (07:59)
[2019-05-26] MEDS: vitamin D (cholecalciferol) 1,000 unit tablet PO SCH (08:00)
[2019-05-26] MEDS: lactobacillus rhamnosus 10,000 MMU CELLS/CAPSULE PO SCH ×2 (08:00→19:29)
[2019-05-26] MEDS: heparin, porcine 5000 units/ml vial SQ SCH ×2 (08:00→19:33)
[2019-05-26] MEDS: propranolol 10mg tablet PO SCH ×2 (08:00→19:32)
[2019-05-26] MEDS: furosemide 20MG tablet PO SCH ×2 (08:00→19:33)
[2019-05-26] MEDS: insulin Lispro (HumaLOG) vial - multi-dose SQ SCH ×3 (08:03→20:59)
[2019-05-26] MEDS: budesonide 0.5mg/2ml UD nebule IH SCH ×2 (08:48→21:12)
--- NOTE | 2019-05-26 09:57 | NUR ---
DM consult: Pt with A1c 6.5; DM ed not warranted at this time. Will continue to follow. Addendum: 05/26/19 at [address] Amended: Links added.
[2019-05-26 11:00] VITALS: BP 117/50
[2019-05-26] MEDS: gabapentin 300mg capsule PO SCH ×2 (11:41→17:02)
--- NOTE | 2019-05-26 13:24 | NUR ---
Spoke with Dr Shea and asked her if she wants us to follow the diabetic protocol or if she wants us to give 15 units of insulin TID. She stated 15 units is only half the dose of what he takes at home. Therefore she wants me to give 15 units of insulin TID as a "give".
[2019-05-26] MEDS: loratadine 10mg tablet PO SCH (17:02)
[2019-05-26 18:00] VITALS: BP 141/55
--- NOTE | 2019-05-26 18:15 | NUR ---
Patient in room [facility]. I have received report from Rajesh and had the opportunity to ask questions and assume patient care.
--- NOTE | 2019-05-26 18:24 | NUR ---
Problems reprioritized. Patient report given, questions answered & plan of care reviewed with Josselyn.
[2019-05-26 19:34] VITALS: BP 124/52
[2019-05-26] MEDS: insulin glargine (Lantus) pen - multi-dose SQ SCH (21:03)
[2019-05-26] MEDS: losartan 25mg tablet PO SCH (21:03)
[2019-05-26] MEDS: traZODone 50mg tablet PO SCH (21:04)
[2019-05-27] VITALS: BP 154/55
--- NOTE | 2019-05-27 00:07 | NUR ---
Problems reprioritized. Patient report given, questions answered & plan of care reviewed with Candida SMART.
[2019-05-27] MEDS: albuterol 2.5 MG/3 ML nebule NEB SCH ×4 (02:38→20:42)
[2019-05-27 05:16] LABS: BASOPHILS % (AUTO) 0.3 % (0-1); EOSINOPHILS # (AUTO) 0.1 X10'3 (0-0.9); EOSINOPHILS % (AUTO) 1.4 % (0-6); HEMATOCRIT 26.5 % (42.0-52.0); HEMOGLOBIN 8.7 g/dl (14.0-17.9); LYMPHOCYTES % (AUTO) 16.2 % (21-51); MEAN CORPUSCULAR HGB CONC 32.8 g/dL (33.0-36.5); MEAN CORPUSCULAR VOLUME 82.4 FL (78-98); MEAN PLATELET VOLUME 8.1 FL (7.4-10.4); MONOCYTES # (AUTO) 0.6 X10'3 (0-0.9); MONOCYTES % (AUTO) 9.6 % (2-12); NEUTROPHILS # (AUTO) 4.5 X10'3 (1.8-7.7); NEUTROPHILS % (AUTO) 72.5 % (42-75); PLATELET COUNT 162 X10'3 (140-440); RED BLOOD COUNT 3.22 X10'6 (4.70-6.10); RED CELL DISTRIBUTION WIDTH 18.5 % (11.5-14.5); WHITE BLOOD COUNT 6.2 X10'3 (4.5-11.0)
[2019-05-27 05:33] LABS: ANION GAP 9 (8-16); BLOOD UREA NITROGEN 15 MG/DL (7-18); BUN/CREATININE RATIO 13.6 (5.4-32.0); CALCIUM 8.4 MG/DL (8.5-10.1); CHLORIDE 105 MMOL/L (99-107); GLUCOSE 116 MG/DL (70-104); POTASSIUM 4.2 MMOL/L (3.5-5.1); SODIUM 137 MMOL/L (135-145); TOTAL CARBON DIOXIDE 23.4 MMOL/L (24-32); eGFR 71 ML/MIN
[2019-05-27 06:30] VITALS: BP 126/55
--- NOTE | 2019-05-27 06:30 | NUR ---
Patient in room [facility]. I have received report from BING Tirado and had the opportunity to ask questions and assume patient care.
[2019-05-27] MEDS: normal saline 1000ml 1,000 ML IV SCH ×2 (06:43→09:38)
[2019-05-27] MEDS: K and/or MAG REPLACEMENT MC SCH (07:22)
[2019-05-27] MEDS: budesonide 0.5mg/2ml UD nebule IH SCH ×2 (07:22→20:42)
[2019-05-27] MEDS: benztropine 1mg tablet PO SCH ×2 (09:23→21:36)
[2019-05-27] MEDS: ceFAZolin 1GM/D5W- ADD-VANTAGE 50 ML IV SCH ×3 (09:24→23:17)
[2019-05-27] MEDS: lactobacillus rhamnosus 10,000 MMU CELLS/CAPSULE PO SCH ×2 (09:24→21:35)
[2019-05-27] MEDS: propranolol 10mg tablet PO SCH ×2 (09:25→21:36)
[2019-05-27] MEDS: aspirin 81mg tablet.DR PO SCH (09:25)
[2019-05-27] MEDS: potassium chloride 8mEq ER tablet PO SCH ×2 (09:25→21:39)
[2019-05-27] MEDS: pantoprazole 40mg Tablet.DR PO SCH (09:25)
[2019-05-27] MEDS: furosemide 20MG tablet PO SCH ×2 (09:25→21:36)
[2019-05-27] MEDS: gemfibrozil 600mg tablet PO SCH ×2 (09:25→21:35)
[2019-05-27] MEDS: gabapentin 400mg capsule PO SCH ×3 (09:25→23:20)
[2019-05-27] MEDS: vitamin B comp w/Vit. C tab 1 TAB TABLET PO SCH ×2 (09:25→21:36)
[2019-05-27] MEDS: metFORMIN 500mg tablet PO SCH ×2 (09:26→21:36)
[2019-05-27] MEDS: heparin, porcine 5000 units/ml vial SQ SCH ×2 (09:26→21:35)
[2019-05-27] MEDS: vitamin D (cholecalciferol) 1,000 unit tablet PO SCH (09:26)
[2019-05-27] MEDS: insulin Lispro (HumaLOG) vial - multi-dose SQ SCH ×3 (09:32→21:29)
[2019-05-27 11:00] VITALS: BP 127/52
[2019-05-27] MEDS: gabapentin 300mg capsule PO SCH ×2 (12:59→17:17)
[2019-05-27] MEDS: loratadine 10mg tablet PO SCH (17:17)
[2019-05-27 18:00] VITALS: BP 139/68
[2019-05-27] MEDS: HYDROcodone/acetaminophen 5mg/325mg tablet PO PRN (20:48)
[2019-05-27] MEDS: insulin glargine (Lantus) pen - multi-dose SQ SCH (21:34)
[2019-05-27] MEDS: losartan 25mg tablet PO SCH (21:35)
[2019-05-27] MEDS: traZODone 50mg tablet PO SCH (21:36)
[2019-05-28] VITALS: BP 132/55
[2019-05-28] MEDS: albuterol 2.5 MG/3 ML nebule NEB SCH ×4 (02:29→20:15)
[2019-05-28 06:19] LABS: BASOPHILS % (AUTO) 0.8 % (0-1); EOSINOPHILS # (AUTO) 0.2 X10'3 (0-0.9); EOSINOPHILS % (AUTO) 2.5 % (0-6); HEMATOCRIT 25.7 % (42.0-52.0); HEMOGLOBIN 8.5 g/dl (14.0-17.9); LYMPHOCYTES # (AUTO) 1.5 X10'3 (1.1-4.8); LYMPHOCYTES % (AUTO) 23.8 % (21-51); MEAN CORPUSCULAR HEMOGLOBIN 27.4 PG (27.0-31.0); MEAN CORPUSCULAR HGB CONC 33.1 g/dL (33.0-36.5); MEAN CORPUSCULAR VOLUME 82.8 FL (78-98); MONOCYTES # (AUTO) 0.5 X10'3 (0-0.9); MONOCYTES % (AUTO) 8.4 % (2-12); NEUTROPHILS # (AUTO) 3.9 X10'3 (1.8-7.7); NEUTROPHILS % (AUTO) 64.5 % (42-75); PLATELET COUNT 221 X10'3 (140-440); RED CELL DISTRIBUTION WIDTH 18.7 % (11.5-14.5); WHITE BLOOD COUNT 6.1 X10'3 (4.5-11.0)
[2019-05-28 06:23] LABS: ANION GAP 11 (8-16); BLOOD UREA NITROGEN 19 MG/DL (7-18); BUN/CREATININE RATIO 15.3 (5.4-32.0); CALCIUM 8.6 MG/DL (8.5-10.1); CHLORIDE 104 MMOL/L (99-107); CREATININE 1.24 MG/DL (0.60-1.10); GLUCOSE 94 MG/DL (70-104); POTASSIUM 4.1 MMOL/L (3.5-5.1); SODIUM 138 MMOL/L (135-145); TOTAL CARBON DIOXIDE 22.9 MMOL/L (24-32); eGFR 62 ML/MIN
--- NOTE | 2019-05-28 06:25 | NUR ---
Patient in room [facility] 349. I have received report from BING Tirado and had the opportunity to ask questions and assume patient care.
[2019-05-28 06:30] VITALS: BP 125/51
[2019-05-28] MEDS: budesonide 0.5mg/2ml UD nebule IH SCH ×2 (07:26→20:15)
[2019-05-28] MEDS ORDERED: magnesium hydroxide 30ml (MOM) UD suspension PO PRN (07:35)
[2019-05-28] MEDS: K and/or MAG REPLACEMENT MC SCH (08:00)
[2019-05-28 08:03] LABS: ANISOCYTOSIS 2+; PLATELET ESTIMATE NORMAL; POLYCHROMASIA 1+; ROULEAUX 1+
[2019-05-28] MEDS: vitamin B comp w/Vit. C tab 1 TAB TABLET PO SCH ×2 (08:46→20:01)
[2019-05-28] MEDS: furosemide 20MG tablet PO SCH ×2 (08:46→20:01)
[2019-05-28] MEDS: vitamin D (cholecalciferol) 1,000 unit tablet PO SCH (08:46)
[2019-05-28] MEDS: potassium chloride 8mEq ER tablet PO SCH ×2 (08:46→20:00)
[2019-05-28] MEDS: ceFAZolin 1GM/D5W- ADD-VANTAGE 50 ML IV SCH ×2 (08:46→16:06)
[2019-05-28] MEDS: aspirin 81mg tablet.DR PO SCH (08:46)
[2019-05-28] MEDS: lactobacillus rhamnosus 10,000 MMU CELLS/CAPSULE PO SCH ×2 (08:46→20:00)
[2019-05-28] MEDS: propranolol 10mg tablet PO SCH ×2 (08:47→20:00)
[2019-05-28] MEDS: metFORMIN 500mg tablet PO SCH ×2 (08:47→20:01)
[2019-05-28] MEDS: benztropine 1mg tablet PO SCH ×2 (08:47→21:31)
[2019-05-28] MEDS: gemfibrozil 600mg tablet PO SCH ×2 (08:47→20:00)
[2019-05-28] MEDS: gabapentin 400mg capsule PO SCH ×2 (08:47→16:05)
[2019-05-28] MEDS: heparin, porcine 5000 units/ml vial SQ SCH ×2 (08:48→20:02)
[2019-05-28] MEDS: insulin Lispro (HumaLOG) vial - multi-dose SQ SCH ×3 (08:54→21:28)
[2019-05-28] MEDS: pantoprazole 40mg Tablet.DR PO SCH (08:56)
[2019-05-28 11:00] VITALS: BP 124/53
[2019-05-28] MEDS: gabapentin 300mg capsule PO SCH ×2 (13:05→17:12)
[2019-05-28] MEDS: loratadine 10mg tablet PO SCH (17:12)
[2019-05-28 18:00] VITALS: BP 175/57
--- NOTE | 2019-05-28 18:15 | NUR ---
Problems reprioritized. Patient report given, questions answered & plan of care reviewed with BING Maradiaga.
--- NOTE | 2019-05-28 18:48 | NUR ---
Patient in room [facility] 349. I have received report from BING Haynes and had the opportunity to ask questions and assume patient care.
[2019-05-28] MEDS: HYDROcodone/acetaminophen 5mg/325mg tablet PO PRN (20:01)
[2019-05-28] MEDS: insulin glargine (Lantus) pen - multi-dose SQ SCH (21:29)
[2019-05-28] MEDS: traZODone 50mg tablet PO SCH (21:31)
[2019-05-28] MEDS: losartan 25mg tablet PO SCH (21:31)
[2019-05-29] VITALS: BP 153/69
[2019-05-29] MEDS: gabapentin 400mg capsule PO SCH ×4 (00:31→23:50)
[2019-05-29] MEDS: albuterol 2.5 MG/3 ML nebule NEB SCH ×4 (02:58→19:47)
[2019-05-29 05:29] LABS: BASOPHILS % (AUTO) 0.7 % (0-1); EOSINOPHILS # (AUTO) 0.2 X10'3 (0-0.9); EOSINOPHILS % (AUTO) 2.8 % (0-6); HEMATOCRIT 28.2 % (42.0-52.0); HEMOGLOBIN 9.1 g/dl (14.0-17.9); LYMPHOCYTES # (AUTO) 1.4 X10'3 (1.1-4.8); LYMPHOCYTES % (AUTO) 23.2 % (21-51); MEAN CORPUSCULAR HEMOGLOBIN 26.8 PG (27.0-31.0); MEAN CORPUSCULAR HGB CONC 32.4 g/dL (33.0-36.5); MEAN CORPUSCULAR VOLUME 82.8 FL (78-98); MEAN PLATELET VOLUME 7.4 FL (7.4-10.4); MONOCYTES # (AUTO) 0.5 X10'3 (0-0.9); MONOCYTES % (AUTO) 8.4 % (2-12); NEUTROPHILS # (AUTO) 3.9 X10'3 (1.8-7.7); NEUTROPHILS % (AUTO) 64.9 % (42-75); PLATELET COUNT 278 X10'3 (140-440); RED CELL DISTRIBUTION WIDTH 18.3 % (11.5-14.5)
[2019-05-29 05:43] LABS: ALBUMIN 2.1 G/DL (3.4-5.0); ANION GAP 9 (8-16); BLOOD UREA NITROGEN 14 MG/DL (7-18); CALCIUM 8.5 MG/DL (8.5-10.1); CHLORIDE 108 MMOL/L (99-107); GLUCOSE 99 MG/DL (70-104); MAGNESIUM 1.9 MG/DL (1.5-2.4); POTASSIUM 4.3 MMOL/L (3.5-5.1); SODIUM 141 MMOL/L (135-145); TOTAL CARBON DIOXIDE 23.9 MMOL/L (24-32); eGFR 79 ML/MIN
[2019-05-29 05:46] LABS: % IRON SATURATION 19 % (11-46); IRON 35 UG/DL (53-167); TOTAL IRON BINDING CAPACITY 189 UG/DL (259-388)
--- NOTE | 2019-05-29 06:20 | NUR ---
Problems reprioritized. Patient report given, questions answered & plan of care reviewed with BING Haynes.
--- NOTE | 2019-05-29 06:25 | NUR ---
Patient in room [facility]. I have received report from BING Maradiaga and had the opportunity to ask questions and assume patient care.
[2019-05-29 06:30] VITALS: BP 153/69
[2019-05-29] MEDS: K and/or MAG REPLACEMENT MC SCH (06:38)
[2019-05-29] MEDS: heparin, porcine 5000 units/ml vial SQ SCH ×2 (06:56→20:46)
[2019-05-29] MEDS: pantoprazole 40mg Tablet.DR PO SCH (06:59)
[2019-05-29] MEDS: benztropine 1mg tablet PO SCH ×2 (06:59→20:42)
[2019-05-29] MEDS: aspirin 81mg tablet.DR PO SCH (06:59)
[2019-05-29] MEDS: propranolol 10mg tablet PO SCH ×2 (06:59→20:41)
[2019-05-29] MEDS: metFORMIN 500mg tablet PO SCH ×2 (06:59→20:45)
[2019-05-29] MEDS: furosemide 20MG tablet PO SCH ×2 (06:59→20:43)
[2019-05-29] MEDS: vitamin B comp w/Vit. C tab 1 TAB TABLET PO SCH ×2 (06:59→20:54)
[2019-05-29] MEDS: potassium chloride 8mEq ER tablet PO SCH ×2 (06:59→20:41)
[2019-05-29] MEDS: gemfibrozil 600mg tablet PO SCH ×2 (06:59→20:44)
[2019-05-29] MEDS: lactobacillus rhamnosus 10,000 MMU CELLS/CAPSULE PO SCH ×2 (07:00→20:42)
[2019-05-29] MEDS: vitamin D (cholecalciferol) 1,000 unit tablet PO SCH (07:04)
[2019-05-29] MEDS: insulin Lispro (HumaLOG) vial - multi-dose SQ SCH ×3 (07:05→20:38)
[2019-05-29] MEDS: budesonide 0.5mg/2ml UD nebule IH SCH ×2 (08:21→19:47)
[2019-05-29] MEDS ORDERED: potassium CL 10mEq/100ml bag 100 ML IV PRN (10:25)
[2019-05-29] MEDS ORDERED: potassium Cl 20 mEq SR tablet PO PRN ×2 (10:25)
[2019-05-29] MEDS ORDERED: magnesium 4gm in 100ml NS 100 ML IV PRN (10:25)
[2019-05-29] MEDS ORDERED: magnesium Cl slow-release 64mg tablet PO PRN (10:25)
[2019-05-29 11:00] VITALS: BP 158/72
[2019-05-29] MEDS: cefepime 1GM in D5W 50mL 50 ML IV SCH ×3 (11:19→23:50)
[2019-05-29 11:57] LABS: URINE AMPHETAMINE SCREEN NEGATIVE (Neg); URINE BARBITUATE SCREEN NEGATIVE (Neg); URINE BENZODIAZEPINES SCREEN NEGATIVE (Neg); URINE CANNABINOID SCREEN NEGATIVE (Neg); URINE COCAINE SCREEN NEGATIVE (Neg); URINE METHADONE SCREEN NEGATIVE (Neg); URINE OPIATE SCREEN NEGATIVE (Neg); URINE PHENCYCLIDINE SCREEN NEGATIVE (Neg)
[2019-05-29] MEDS: gabapentin 300mg capsule PO SCH ×2 (12:30→17:23)
[2019-05-29] MEDS ORDERED: VANCOMYCIN LEVEL IV ONE (16:30)
[2019-05-29] MEDS: loratadine 10mg tablet PO SCH (17:23)
--- NOTE | 2019-05-29 18:45 | NUR ---
Problems reprioritized. Patient report given, questions answered & plan of care reviewed with BING Anne.
--- NOTE | 2019-05-29 19:03 | NUR ---
Patient in room [facility] 349. I have received report from BING Haynes and had the opportunity to ask questions and assume patient care.
[2019-05-29 20:00] VITALS: BP 157/52
[2019-05-29] MEDS: insulin glargine (Lantus) pen - multi-dose SQ SCH (20:37)
[2019-05-29] MEDS: traZODone 50mg tablet PO SCH (20:40)
[2019-05-29] MEDS: losartan 25mg tablet PO SCH (20:41)
[2019-05-30 00:45] VITALS: BP 160/74
[2019-05-30] MEDS: albuterol 2.5 MG/3 ML nebule NEB SCH ×2 (03:33→09:39)
--- NOTE | 2019-05-30 06:15 | NUR ---
Problems reprioritized. Patient report given, questions answered & plan of care reviewed with BING Will.
[2019-05-30 06:24] LABS: ALANINE AMINOTRANSFERASE 21 U/L (12-78); ALBUMIN 2.3 G/DL (3.4-5.0); ALBUMIN/GLOBULIN RATIO 0.5 (1.1-1.5); ALKALINE PHOSPHATASE 68 IU/L (46-116); ANION GAP 10 (8-16); ASPARTATE AMINO TRANSFERASE 23 U/L (10-37); BILIRUBIN,TOTAL 0.6 MG/DL (0.1-1.0); BLOOD UREA NITROGEN 12 MG/DL (7-18); BUN/CREATININE RATIO 13.3 (5.4-32.0); CALCIUM 9.1 MG/DL (8.5-10.1); CHLORIDE 106 MMOL/L (99-107); GLUCOSE 108 MG/DL (70-104); MAGNESIUM 1.7 MG/DL (1.5-2.4); PHOSPHORUS 4.5 MG/DL (2.3-4.5); POTASSIUM 4.3 MMOL/L (3.5-5.1); SODIUM 141 MMOL/L (135-145); TOTAL CARBON DIOXIDE 24.6 MMOL/L (24-32); TOTAL PROTEIN 7.4 G/DL (6.4-8.2); eGFR 90 ML/MIN
[2019-05-30] MEDS: vitamin D (cholecalciferol) 1,000 unit tablet PO SCH (07:23)
[2019-05-30] MEDS: aspirin 81mg tablet.DR PO SCH (07:23)
[2019-05-30] MEDS: metFORMIN 500mg tablet PO SCH (07:23)
[2019-05-30] MEDS: potassium chloride 8mEq ER tablet PO SCH (07:24)
[2019-05-30] MEDS: gemfibrozil 600mg tablet PO SCH (07:24)
[2019-05-30] MEDS: pantoprazole 40mg Tablet.DR PO SCH (07:24)
[2019-05-30] MEDS: lactobacillus rhamnosus 10,000 MMU CELLS/CAPSULE PO SCH (07:24)
[2019-05-30] MEDS: gabapentin 400mg capsule PO SCH (07:24)
[2019-05-30] MEDS: vitamin B comp w/Vit. C tab 1 TAB TABLET PO SCH (07:25)
[2019-05-30] MEDS: furosemide 20MG tablet PO SCH (07:25)
[2019-05-30] MEDS: benztropine 1mg tablet PO SCH (07:25)
[2019-05-30 07:26] LABS: BASOPHILS % (AUTO) 0.7 % (0-1); EOSINOPHILS # (AUTO) 0.2 X10'3 (0-0.9); EOSINOPHILS % (AUTO) 2.3 % (0-6); HEMATOCRIT 29.5 % (42.0-52.0); HEMOGLOBIN 9.4 g/dl (14.0-17.9); LYMPHOCYTES # (AUTO) 1.5 X10'3 (1.1-4.8); LYMPHOCYTES % (AUTO) 21.4 % (21-51); MEAN CORPUSCULAR HEMOGLOBIN 26.4 PG (27.0-31.0); MEAN CORPUSCULAR HGB CONC 31.8 g/dL (33.0-36.5); MEAN CORPUSCULAR VOLUME 83.1 FL (78-98); MEAN PLATELET VOLUME 7.4 FL (7.4-10.4); MONOCYTES # (AUTO) 0.5 X10'3 (0-0.9); MONOCYTES % (AUTO) 7.3 % (2-12); NEUTROPHILS # (AUTO) 4.7 X10'3 (1.8-7.7); NEUTROPHILS % (AUTO) 68.3 % (42-75); PLATELET COUNT 311 X10'3 (140-440); RED BLOOD COUNT 3.56 X10'6 (4.70-6.10); RED CELL DISTRIBUTION WIDTH 18.5 % (11.5-14.5); WHITE BLOOD COUNT 6.8 X10'3 (4.5-11.0)
[2019-05-30] MEDS: propranolol 10mg tablet PO SCH (07:26)
[2019-05-30] MEDS: heparin, porcine 5000 units/ml vial SQ SCH (07:26)
[2019-05-30] MEDS: K and/or MAG REPLACEMENT MC SCH (07:28)
[2019-05-30] MEDS: cefepime 1GM in D5W 50mL 50 ML IV SCH (07:44)
[2019-05-30 07:45] VITALS: BP 160/75
--- NOTE | 2019-05-30 08:38 | NUR ---
SPOKE TO MD MORA DURING HER MORNING ROUNDS ABOUT MD NOTES STATING TO DC ORAL HYPOGLYCEMICS AND CONTINUE ON HOSPITAL HYPO/HYPERGLYCEMIA. SHE SAID THAT SHE WOULD WRITE AN AMENDMENT NOTE CONCERNING THIS NOTE AND THAT SHE ALREADY DISCUSSED WITH A PREVIOUS NURSE THAT SHE WANT bg CHECK PRN AND TO CONTINUE ORAL HYPOGLYCEMICS SINCE THE PT. HAS NO UPCOMING SURGERIES OR PROCEDURES.
[2019-05-30] MEDS: insulin Lispro (HumaLOG) vial - multi-dose SQ SCH (08:53)
[2019-05-30] MEDS: budesonide 0.5mg/2ml UD nebule IH SCH (09:39)
[2019-05-30] MEDS ORDERED: LINE600T12 PO (09:49)
--- NOTE | 2019-05-30 11:30 | NUR ---
Pt. discharged in a stable condition. 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 Medication Zyvox delivered to bedside by Ariana. Reviewed medications with pt. and written education given to pt. as well. IV DC'd , pressure bandage applied, no s/sx bleeding noted. ID wristband removed. Discharge paperwork reviewed with pt. 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 He is aware to return to hospital if symptoms worsen. Both sons here to pick pt. up. Axillary called and staff escorted pt. out in a wheelchair to private vehicle to go home.
== END 2019-05-30 11:30 | disposition home or self-care (01) | DRG 602 ==
LOC: ER 10:18 → SUR 3N 13:54 → CMPBEDREQ 05-29 15:15
PROVIDERS: ADMIT Internal Medicine; ATTEND Family Medicine
PROC: 3E0234Z Introduction of Serum, Toxoid and Vaccine into Muscle, Percutaneous Approach (ICD-10-PCS; 2019-05-25)
PROC: 5A09357 Assistance with Respiratory Ventilation, Less than 24 Consecutive Hours, Continuous Positive Airway Pressure (ICD-10-PCS; principal; 2019-05-26)
PROC: 5A09357 Assistance with Respiratory Ventilation, Less than 24 Consecutive Hours, Continuous Positive Airway Pressure (ICD-10-PCS; 2019-05-27)
PROC: 5A09357 Assistance with Respiratory Ventilation, Less than 24 Consecutive Hours, Continuous Positive Airway Pressure (ICD-10-PCS; 2019-05-28)
PROC: 5A09357 Assistance with Respiratory Ventilation, Less than 24 Consecutive Hours, Continuous Positive Airway Pressure (ICD-10-PCS; 2019-05-29)
DX: L03.116 Cellulitis of left lower limb (principal); N17.0 Acute kidney failure with tubular necrosis; Z68.45 Body mass index [BMI] 70 or greater, adult; E11.42 Type 2 diabetes mellitus with diabetic polyneuropathy; E66.01 Morbid (severe) obesity due to excess calories; D64.9 Anemia, unspecified; E78.00 Pure hypercholesterolemia, unspecified; E78.5 Hyperlipidemia, unspecified; G47.30 Sleep apnea, unspecified; I87.2 Venous insufficiency (chronic) (peripheral); I10 Essential (primary) hypertension; J45.909 Unspecified asthma, uncomplicated; K21.9 Gastro-esophageal reflux disease without esophagitis; E86.0 Dehydration; F32.9 Major depressive disorder, single episode, unspecified; F41.9 Anxiety disorder, unspecified; Z23 Encounter for immunization; Z91.013 Allergy to seafood; Z82.49 Family history of ischemic heart disease and other diseases of the circulatory system; Z83.3 Family history of diabetes mellitus; Z79.899 Other long term (current) drug therapy; Z79.82 Long term (current) use of aspirin; Z79.84 Long term (current) use of oral hypoglycemic drugs; Z71.3 Dietary counseling and surveillance
CPT/HCPCS: 36415; 71045; 80048; 80053; 80202; 80305; 80320; 81001; 82948; 83036; 83540; 83550; 83605; 83735; 84100; 84145; 85025; 85610; 85730; 87040; 87081; 87088; 90732; 93005; 93971; 94640; 94760; 96365; 97116; 97162; 99285; G0378; J0690; J0692; J0696; J1644; J1815; J2270; J3370; J7030; J7626

== ENCOUNTER 2019-06-06 10:55 | Outpatient (CLI) | payer MEDICARE, MEDICAID ==
[~2019-06-06 10:55] MED LIST changes: +ALBU17AE26 INH; +BUDE10.2 PO; -EMPA10TA PO; +EMPA25TA PO; +GARL400T14 PO; +LINE600T12 PO; +MAGN100T5 PO; +OMEG1CAP2 PO; -ONDA8TAB6 PO; -POLY119P2 PO; -PRIM50TA PO; +TIZA4TAB5 PO; +VITA1TAB20 PO
== END 2019-06-06 23:59 | disposition home or self-care (01) ==
LOC: RAD 10:55
PROVIDERS: ATTEND Psychiatry & Neurology Neurology
DX: R56.9 Unspecified convulsions (principal); I10 Essential (primary) hypertension; E11.9 Type 2 diabetes mellitus without complications; Z87.891 Personal history of nicotine dependence
CPT/HCPCS: 95816

== ENCOUNTER 2019-08-04 14:48 | Inpatient (IN) | payer MEDICARE, MEDICAID ==
[~2019-08-04] VITALS: Ht 172.7 cm; Wt 186.4 kg
[~2019-08-04 14:48] MED LIST changes: -LINE600T12 PO
[2019-08-04] MEDS ORDERED: clindamycin 600mg/D5W 50ml 50 ML IV ONE (18:25)
[2019-08-04] MEDS ORDERED: normal saline 1000ML IV soln IV ONE (18:25)
--- NOTE | 2019-08-04 18:32 | NUR ---
[facility] CALLED BACK AT 18:32 AND WILL BE IN SHORTLY
[2019-08-04 19:11] LABS: EOSINOPHILS % (AUTO) 0.3 % (0-6); HEMOGLOBIN 10.6 g/dl (14.0-17.9); NEUTROPHILS # (AUTO) 6.6 X10'3 (1.8-7.7)
[2019-08-04 19:13] LABS: BASOPHILS % (AUTO) 0.4 % (0-1); HEMATOCRIT 32.3 % (42.0-52.0); LYMPHOCYTES % (AUTO) 12.1 % (21-51); MEAN CORPUSCULAR VOLUME 81.8 FL (78-98); MEAN PLATELET VOLUME 8.1 FL (7.4-10.4); MONOCYTES # (AUTO) 0.7 X10'3 (0-0.9); MONOCYTES % (AUTO) 8.4 % (2-12); NEUTROPHILS % (AUTO) 78.8 % (42-75); PLATELET COUNT 205 X10'3 (140-440); RED BLOOD COUNT 3.95 X10'6 (4.70-6.10); RED CELL DISTRIBUTION WIDTH 19.7 % (11.5-14.5); WHITE BLOOD COUNT 8.4 X10'3 (4.5-11.0)
[2019-08-04 19:22] LABS: PARTIAL THROMBOPLASTIN TIME 33 SECONDS (22-32)
[2019-08-04 19:24] LABS: ALANINE AMINOTRANSFERASE 23 U/L (12-78); ALBUMIN 3.3 G/DL (3.4-5.0); ALBUMIN/GLOBULIN RATIO 0.6 (1.1-1.5); ALKALINE PHOSPHATASE 54 IU/L (46-116); ANION GAP 15 (8-16); ASPARTATE AMINO TRANSFERASE 17 U/L (10-37); BILIRUBIN,TOTAL 0.9 MG/DL (0.1-1.0); BLOOD UREA NITROGEN 21 MG/DL (7-18); BUN/CREATININE RATIO 15.4 (5.4-32.0); CALCIUM 9.5 MG/DL (8.5-10.1); CHLORIDE 99 MMOL/L (99-107); CREATININE 1.36 MG/DL (0.60-1.10); GLUCOSE 171 MG/DL (70-104); POTASSIUM 4.1 MMOL/L (3.5-5.1); SODIUM 138 MMOL/L (135-145); TOTAL CARBON DIOXIDE 24.5 MMOL/L (24-32); TOTAL PROTEIN 9.2 G/DL (6.4-8.2); eGFR 55 ML/MIN
[2019-08-04] MEDS ORDERED: magnesium hydroxide 30ml (MOM) UD suspension PO PRN (20:40)
[2019-08-04] MEDS ORDERED: ondansetron/PF 4mg/2ml inj IV PRN (20:40)
[2019-08-04] MEDS ORDERED: mag hydrox/Alum hydrox/simeth 30ml oral suspension PO PRN (20:40)
[2019-08-04] MEDS ORDERED: acetaminophen 325mg tablet PO PRN (20:40)
[2019-08-04] MEDS ORDERED: dextrose ORAL solution 15 GM/59 ML bottle PO PRN ×2 (20:50)
[2019-08-04] MEDS ORDERED: insulin Lispro (HumaLOG) vial - multi-dose SQ SCH (20:50)
[2019-08-04] MEDS ORDERED: MESSAGE TO PHARMACY PO ONE (20:50)
[2019-08-04] MEDS ORDERED: glucagon, human recombinant 1mg kit SUBCUT PRN (20:50)
[2019-08-04] MEDS ORDERED: dextrose 50%-water 50ml dispensing syringe IV PRN ×2 (20:50)
[2019-08-04] MEDS ORDERED: MAGNESIUM AMINO ACID CHELATE PO SCH (21:00)
[2019-08-04] MEDS: insulin glargine (Lantus) pen - multi-dose SQ SCH (21:00)
[2019-08-04 21:30] LABS: PLATELET ESTIMATE NORMAL; TOTAL CELLS COUNTED 100
[2019-08-04 21:31] LABS: ANISOCYTOSIS 2+
[2019-08-04 22:00] VITALS: BP 154/70
--- NOTE | 2019-08-04 22:00 | NUR ---
Patient in room [facility]23. I have received report from BING Reyes and had the opportunity to ask questions and assume patient care.
[2019-08-04] MEDS: normal saline 1000ml 1,000 ML IV SCH (22:44)
[2019-08-04] MEDS: Melatonin 3mg tablet PO SCH (22:48)
[2019-08-04] MEDS: traZODone 50mg tablet PO SCH (22:48)
[2019-08-04] MEDS: tizanidine 4mg tablet PO PRN (23:18)
[2019-08-04 23:42] LABS: CLARITY,URINE CLEAR (Clear); COLOR,URINE YELLOW (Yellow); GLUCOSE, URINE >=1000 mg/dl (Neg); KETONES,URINE NEGATIVE (Neg); LEUKOCYTE ESTERASE ,URINE NEGATIVE (Neg); NITRITES, URINE NEGATIVE (Neg); OCCULT BLOOD,URINE TRACE-INTACT (Neg); PROTEIN,URINE 100 mg/dl (Neg)
[2019-08-04 23:45] LABS: UA COLLECTION TYPE URINAL
[2019-08-04] MEDS: gabapentin 400mg capsule PO SCH (23:47)
[2019-08-05 00:24] LABS: BACTERIA,URINE NONE SEEN /HPF (Neg); MUCUS STRANDS FEW /LPF (Neg); SQUAMOUS EPITHELIAL CELL,UR FEW /LPF (FEW); WBC,URINE 0-4 /HPF (0-4)
[2019-08-05] MEDS: albuterol 2.5 MG/3 ML nebule NEB SCH ×4 (02:00→20:08)
[2019-08-05] MEDS ORDERED: clindamycin 600mg/D5W 50ml 50 ML IV SCH (02:00)
[2019-08-05 06:00] VITALS: BP 124/48
--- NOTE | 2019-08-05 06:25 | NUR ---
Problems reprioritized. Patient report given, questions answered & plan of care reviewed with BING Hoffman.
[2019-08-05] MEDS: normal saline 1000ml 1,000 ML IV SCH ×2 (06:38→12:08)
--- NOTE | 2019-08-05 06:48 | NUR ---
Patient in room [facility]23. I have received report from Dorothy SMART and had the opportunity to ask questions and assume patient care.
[2019-08-05 06:58] LABS: BASOPHILS % (AUTO) 0.4 % (0-1); EOSINOPHILS # (AUTO) 0.1 X10'3 (0-0.9); HEMATOCRIT 26.1 % (42.0-52.0); HEMOGLOBIN 8.6 g/dl (14.0-17.9); LYMPHOCYTES % (AUTO) 16.4 % (21-51); MEAN PLATELET VOLUME 8.3 FL (7.4-10.4)
[2019-08-05 06:59] LABS: EOSINOPHILS % (AUTO) 1.4 % (0-6); MEAN CORPUSCULAR HEMOGLOBIN 27.4 PG (27.0-31.0); MEAN CORPUSCULAR HGB CONC 33.2 g/dL (33.0-36.5); MEAN CORPUSCULAR VOLUME 82.5 FL (78-98); MONOCYTES # (AUTO) 0.6 X10'3 (0-0.9); MONOCYTES % (AUTO) 10.5 % (2-12); NEUTROPHILS # (AUTO) 4.4 X10'3 (1.8-7.7); NEUTROPHILS % (AUTO) 71.3 % (42-75); PLATELET COUNT 168 X10'3 (140-440); RED BLOOD COUNT 3.16 X10'6 (4.70-6.10); RED CELL DISTRIBUTION WIDTH 19.9 % (11.5-14.5); WHITE BLOOD COUNT 6.2 X10'3 (4.5-11.0)
[2019-08-05 07:07] LABS: ALANINE AMINOTRANSFERASE 18 U/L (12-78); ALBUMIN 2.8 G/DL (3.4-5.0); ALBUMIN/GLOBULIN RATIO 0.6 (1.1-1.5); ALKALINE PHOSPHATASE 54 IU/L (46-116); ANION GAP 12 (8-16); ASPARTATE AMINO TRANSFERASE 15 U/L (10-37); BILIRUBIN,TOTAL 0.7 MG/DL (0.1-1.0); BLOOD UREA NITROGEN 20 MG/DL (7-18); BUN/CREATININE RATIO 15.7 (5.4-32.0); CALCIUM 8.5 MG/DL (8.5-10.1); CHLORIDE 101 MMOL/L (99-107); CREATININE 1.27 MG/DL (0.60-1.10); GLUCOSE 137 MG/DL (70-104); POTASSIUM 3.7 MMOL/L (3.5-5.1); SODIUM 137 MMOL/L (135-145); TOTAL CARBON DIOXIDE 23.7 MMOL/L (24-32); TOTAL PROTEIN 7.7 G/DL (6.4-8.2); eGFR 60 ML/MIN
[2019-08-05 07:45] VITALS: BP 133/71
[2019-08-05] MEDS: gabapentin 400mg capsule PO SCH ×2 (07:48→16:13)
[2019-08-05] MEDS: propranolol 10mg tablet PO SCH ×2 (07:48→20:44)
[2019-08-05] MEDS: aspirin 81mg tablet.DR PO SCH (07:49)
[2019-08-05] MEDS: gemfibrozil 600mg tablet PO SCH ×2 (07:49→20:42)
[2019-08-05] MEDS: furosemide 20MG tablet PO SCH ×2 (07:49→20:42)
[2019-08-05] MEDS: pantoprazole 40mg Tablet.DR PO SCH (07:49)
[2019-08-05] MEDS: potassium chloride 8mEq ER tablet PO SCH ×2 (07:50→20:44)
[2019-08-05] MEDS: ascorbic acid 500mg tablet PO SCH (07:50)
[2019-08-05] MEDS: OMEGA-3/DHA/EPA/FISH OIL 1 EACH CAPSULE.DR PO SCH ×3 (07:51→20:41)
[2019-08-05] MEDS: vitamin D (cholecalciferol) 1,000 unit tablet PO SCH (07:51)
[2019-08-05] MEDS: heparin, porcine 5000 units/ml vial SQ SCH ×2 (07:52→20:48)
[2019-08-05 08:00] LABS: ANISOCYTOSIS 2+; PLATELET ESTIMATE NORMAL; TOTAL CELLS COUNTED 100
[2019-08-05 08:01] LABS: ELLIPTOCYTES FEW; POLYCHROMASIA FEW
[2019-08-05] MEDS: budesonide 0.5mg/2ml UD nebule IH SCH ×2 (08:50→20:08)
[2019-08-05 10:00] VITALS: BP 134/57
[2019-08-05] MEDS: gabapentin 300mg capsule PO SCH ×2 (12:09→17:58)
--- NOTE | 2019-08-05 13:11 | NUR ---
DM Consult: Pt A1C 5.5 and not appropriate for DM ed at this time. Addendum: 08/05/19 at [address] Amended: Links added.
[2019-08-05 18:00] VITALS: BP 131/62
--- NOTE | 2019-08-05 18:22 | NUR ---
Problems reprioritized. Patient report given, questions answered & plan of care reviewed with Elise Rn.
--- NOTE | 2019-08-05 18:25 | NUR ---
Received report from Dalton SMART. assumed care of patient.
[2019-08-05] MEDS: Melatonin 3mg tablet PO SCH (20:41)
[2019-08-05] MEDS: traZODone 50mg tablet PO SCH (20:42)
[2019-08-05] MEDS: insulin glargine (Lantus) pen - multi-dose SQ SCH (21:00)
[2019-08-05] MEDS ORDERED: losartan 25mg tablet PO SCH (21:00)
[2019-08-05] MEDS ORDERED: VANCOMYCIN LEVEL IV ONE (21:30)
[2019-08-05] MEDS: tizanidine 4mg tablet PO PRN (21:34)
[2019-08-05 22:00] VITALS: BP 138/70
[2019-08-06] MEDS: gabapentin 400mg capsule PO SCH ×2 (00:12→08:21)
[2019-08-06] MEDS: normal saline 1000ml 1,000 ML IV SCH (01:41)
[2019-08-06] MEDS: albuterol 2.5 MG/3 ML nebule NEB SCH ×2 (02:27→09:03)
[2019-08-06 06:00] VITALS: BP 121/72
--- NOTE | 2019-08-06 06:41 | NUR ---
Gave report to Jonna SMART.
[2019-08-06 07:03] LABS: BASOPHILS % (AUTO) 0.5 % (0-1); EOSINOPHILS # (AUTO) 0.1 X10'3 (0-0.9); EOSINOPHILS % (AUTO) 2.8 % (0-6); HEMATOCRIT 26.2 % (42.0-52.0); HEMOGLOBIN 8.5 g/dl (14.0-17.9); MEAN CORPUSCULAR HEMOGLOBIN 26.9 PG (27.0-31.0); MEAN CORPUSCULAR HGB CONC 32.7 g/dL (33.0-36.5); MEAN CORPUSCULAR VOLUME 82.3 FL (78-98); MONOCYTES # (AUTO) 0.4 X10'3 (0-0.9); MONOCYTES % (AUTO) 10.2 % (2-12); NEUTROPHILS # (AUTO) 2.5 X10'3 (1.8-7.7); NEUTROPHILS % (AUTO) 61.5 % (42-75); PLATELET COUNT 186 X10'3 (140-440); RED BLOOD COUNT 3.18 X10'6 (4.70-6.10); RED CELL DISTRIBUTION WIDTH 19.4 % (11.5-14.5); WHITE BLOOD COUNT 4.1 X10'3 (4.5-11.0)
[2019-08-06 07:21] LABS: ALANINE AMINOTRANSFERASE 21 U/L (12-78); ALBUMIN 2.7 G/DL (3.4-5.0); ALBUMIN/GLOBULIN RATIO 0.6 (1.1-1.5); ALKALINE PHOSPHATASE 49 IU/L (46-116); ANION GAP 11 (8-16); ASPARTATE AMINO TRANSFERASE 17 U/L (10-37); BILIRUBIN,TOTAL 0.5 MG/DL (0.1-1.0); BLOOD UREA NITROGEN 19 MG/DL (7-18); BUN/CREATININE RATIO 16.8 (5.4-32.0); CALCIUM 8.1 MG/DL (8.5-10.1); CHLORIDE 106 MMOL/L (99-107); CREATININE 1.13 MG/DL (0.60-1.10); GLUCOSE 173 MG/DL (70-104); POTASSIUM 4.1 MMOL/L (3.5-5.1); SODIUM 140 MMOL/L (135-145); TOTAL CARBON DIOXIDE 22.6 MMOL/L (24-32); TOTAL PROTEIN 7.6 G/DL (6.4-8.2); eGFR 69 ML/MIN
[2019-08-06] MEDS: OMEGA-3/DHA/EPA/FISH OIL 1 EACH CAPSULE.DR PO SCH (08:14)
[2019-08-06] MEDS: pantoprazole 40mg Tablet.DR PO SCH (08:14)
[2019-08-06] MEDS: aspirin 81mg tablet.DR PO SCH (08:14)
[2019-08-06] MEDS: propranolol 10mg tablet PO SCH (08:17)
[2019-08-06] MEDS: gemfibrozil 600mg tablet PO SCH (08:18)
[2019-08-06] MEDS: ascorbic acid 500mg tablet PO SCH (08:18)
[2019-08-06] MEDS: furosemide 20MG tablet PO SCH (08:18)
[2019-08-06] MEDS: potassium chloride 8mEq ER tablet PO SCH (08:18)
[2019-08-06] MEDS: vitamin D (cholecalciferol) 1,000 unit tablet PO SCH (08:19)
[2019-08-06] MEDS: heparin, porcine 5000 units/ml vial SQ SCH (08:20)
[2019-08-06 08:36] LABS: ANISOCYTOSIS 2+; PLATELET ESTIMATE NORMAL
[2019-08-06 08:37] LABS: POLYCHROMASIA FEW; SCHISTOCYTES FEW
[2019-08-06] MEDS: budesonide 0.5mg/2ml UD nebule IH SCH (09:03)
[2019-08-06 10:00] VITALS: BP 127/55
[2019-08-06] MEDS ORDERED: LINE600T12 PO (11:07)
--- NOTE | 2019-08-06 13:00 | NUR ---
Received discharge orders from Dr. Corey. Picture taken of wound on bottom of left foot and placed in chart. IV dc'd from RFA with cannula intact. No redness/swelling at insertion site. Covered with 2x2 and bandaid. Called RX for Zyvox into [facility] in [place] per pts request as Lane is closed today.Reviewed discharge instructions with pt. Transported via w/c to private vehicle in front of the hospital.
== END 2019-08-06 13:58 | disposition home or self-care (01) | DRG 602 ==
LOC: ER 14:48 → ED HOLD 21:20 → ORTHO 4S 22:07
PROVIDERS: ADMIT Internal Medicine; ATTEND Family Medicine
PROC: 5A09357 Assistance with Respiratory Ventilation, Less than 24 Consecutive Hours, Continuous Positive Airway Pressure (ICD-10-PCS; principal; 2019-08-05)
PROC: 5A09357 Assistance with Respiratory Ventilation, Less than 24 Consecutive Hours, Continuous Positive Airway Pressure (ICD-10-PCS; 2019-08-06)
DX: L03.116 Cellulitis of left lower limb (principal); N17.0 Acute kidney failure with tubular necrosis; Z68.44 Body mass index [BMI] 60.0-69.9, adult; E11.42 Type 2 diabetes mellitus with diabetic polyneuropathy; E78.5 Hyperlipidemia, unspecified; E66.01 Morbid (severe) obesity due to excess calories; E78.00 Pure hypercholesterolemia, unspecified; G47.33 Obstructive sleep apnea (adult) (pediatric); I10 Essential (primary) hypertension; J45.909 Unspecified asthma, uncomplicated; K21.9 Gastro-esophageal reflux disease without esophagitis; F32.9 Major depressive disorder, single episode, unspecified; F41.9 Anxiety disorder, unspecified; Z82.49 Family history of ischemic heart disease and other diseases of the circulatory system; Z79.4 Long term (current) use of insulin; Z91.013 Allergy to seafood; Z86.14 Personal history of Methicillin resistant Staphylococcus aureus infection
CPT/HCPCS: 36415; 71045; 80053; 80202; 81001; 82948; 83036; 83605; 83735; 84145; 85025; 85610; 85730; 87040; 87081; 93005; 93971; 94640; 94760; 96365; 99285; G0378; J1644; J1815; J3370; J3490; J7030; J7626

== ENCOUNTER 2019-09-24 22:18 | Emergency (ER) | payer MEDICARE, MEDICAID ==
[~2019-09-24] VITALS: Ht 175.3 cm; Wt 181.8 kg
[~2019-09-24 22:18] MED LIST changes: -ALBU17AE26 INH; -BENZ1TAB7 PO
[2019-09-24] MEDS ORDERED: acetaminophen 325mg tablet PO ONE (22:50)
--- NOTE | 2019-09-24 23:39 | NUR ---
pt c/o chest pain 06/03 he states is radiating everywhere. C/O SOB 97%
[2019-09-24 23:41] LABS: ALANINE AMINOTRANSFERASE 29 U/L (12-78); ALBUMIN 3.1 G/DL (3.4-5.0); ALBUMIN/GLOBULIN RATIO 0.8 (1.1-1.5); ALKALINE PHOSPHATASE 53 IU/L (46-116); ANION GAP 9 (8-16); ASPARTATE AMINO TRANSFERASE 25 U/L (10-37); BILIRUBIN,TOTAL 0.8 MG/DL (0.1-1.0); BLOOD UREA NITROGEN 16 MG/DL (7-18); BUN/CREATININE RATIO 13.1 (5.4-32.0); CALCIUM 8.8 MG/DL (8.5-10.1); CHLORIDE 103 MMOL/L (99-107); CREATININE 1.22 MG/DL (0.60-1.10); GLUCOSE 86 MG/DL (70-104); POTASSIUM 3.4 MMOL/L (3.5-5.1); SODIUM 139 MMOL/L (135-145); TOTAL CARBON DIOXIDE 27.4 MMOL/L (24-32); TOTAL PROTEIN 7.2 G/DL (6.4-8.2); eGFR 63 ML/MIN
[2019-09-24] MEDS ORDERED: aspirin 325mg tablet PO ONE (23:45)
[2019-09-24 23:48] LABS: BASOPHILS % (AUTO) 0.3 % (0-1); EOSINOPHILS % (AUTO) 0.1 % (0-6); HEMATOCRIT 28.7 % (42.0-52.0); HEMOGLOBIN 9.4 g/dl (14.0-17.9); LYMPHOCYTES # (AUTO) 0.3 X10'3 (1.1-4.8); LYMPHOCYTES % (AUTO) 2.9 % (21-51); MEAN CORPUSCULAR HEMOGLOBIN 26.4 PG (27.0-31.0); MEAN CORPUSCULAR HGB CONC 32.6 g/dL (33.0-36.5); MEAN CORPUSCULAR VOLUME 80.8 FL (78-98); MEAN PLATELET VOLUME 8.2 FL (7.4-10.4); MONOCYTES # (AUTO) 0.5 X10'3 (0-0.9); MONOCYTES % (AUTO) 4.8 % (2-12); NEUTROPHILS # (AUTO) 10.5 X10'3 (1.8-7.7); NEUTROPHILS % (AUTO) 91.9 % (42-75); PLATELET COUNT 154 X10'3 (140-440); RED BLOOD COUNT 3.56 X10'6 (4.70-6.10); WHITE BLOOD COUNT 11.4 X10'3 (4.5-11.0)
[2019-09-25 00:21] LABS: ANISOCYTOSIS 2+; ELLIPTOCYTES 1+; PLATELET ESTIMATE NORMAL
[2019-09-25] MEDS ORDERED: morphine 4 MG/ML inj SYRINge IV ONE (00:30)
[2019-09-25 01:08] LABS: D-DIMER 0.28 MG/L FEU (0-0.50)
[2019-09-25] MEDS: nitroGLYCERIN 0.4mg SUBLingual tab SL PRN ×2 (01:09→01:18)
[2019-09-25] MEDS ORDERED: normal saline 1000ML IV soln IVB ONE (01:10)
[2019-09-25] MEDS ORDERED: CEPH500C5 PO (01:18)
--- NOTE | 2019-09-25 01:20 | NUR ---
PT MEDICATED WITH DOSE OF NITRO SL FOR CP 9/10. PT REPORTS PAIN DECREASED TO 7/10 AFTER 1ST DOSE. 2ND DOSE GIVEN, WILL REASSESS.
[2019-09-25] MEDS ORDERED: iohexol 350MG/ML 100ml bottle IV ONE (01:22)
--- NOTE | 2019-09-25 01:27 | NUR ---
PT REPORTS PAIN IS 5/10 AFTER 2ND DOSE OF SL NITRO. PT GOING FOR CT SCAN. PT BP IS 101/42, WILL HOLD 3RD DOSE OF NITRO AND REASSESS PT WHEN THEY RETURN FROM CT.
[2019-09-25 04:26] VITALS: BP 107/38
== END 2019-09-25 04:29 | disposition home or self-care (01) ==
LOC: ER 22:18
DX: S91.302A Unspecified open wound, left foot, initial encounter (principal); L03.116 Cellulitis of left lower limb; E11.42 Type 2 diabetes mellitus with diabetic polyneuropathy; E78.00 Pure hypercholesterolemia, unspecified; I10 Essential (primary) hypertension; J45.909 Unspecified asthma, uncomplicated; K21.9 Gastro-esophageal reflux disease without esophagitis; F41.9 Anxiety disorder, unspecified; F32.9 Major depressive disorder, single episode, unspecified; G47.30 Sleep apnea, unspecified; R11.2 Nausea with vomiting, unspecified; Z91.013 Allergy to seafood; Z79.82 Long term (current) use of aspirin; Z79.84 Long term (current) use of oral hypoglycemic drugs; Z79.4 Long term (current) use of insulin; Z79.899 Other long term (current) drug therapy; X58.XXXA Exposure to other specified factors, initial encounter; Y93.89 Activity, other specified; Y92.89 Other specified places as the place of occurrence of the external cause; Y99.8 Other external cause status
CPT/HCPCS: 36415; 71045; 71275; 80053; 82948; 84484; 85025; 85379; 93005; 96361; 96374; 99284; J2270; J7030; Q9967

== ENCOUNTER 2019-11-29 00:54 | Emergency (ER) | payer MEDICARE, MEDICAID ==
[~2019-11-29] VITALS: Ht 172.7 cm; Wt 192.0 kg
[~2019-11-29 00:54] MED LIST changes: +ATOR40TA PO; -EMPA25TA PO; +IRBE75TA8 PO; -IRBE75TA9 PO; -METF-438 PO; -PROP20TA6 PO; +PROP40TA72 PO; +TIZA4CAP PO; -TIZA4TAB5 PO; +VIT1TABL83 PO; -VITA1TAB20 PO
--- NOTE | 2019-11-29 02:30 | NUR ---
dr. wen at bedside assessing patient
[2019-11-29] MEDS ORDERED: piperacillin/tazo 3.375gm/50ml 50 ML IV ONE (02:40)
--- NOTE | 2019-11-29 02:55 | NUR ---
Dr. Syed gave me a verbal to not draw blood cultures and to administer Zosyn without blood cultures
[2019-11-29 03:23] LABS: BASOPHILS # (AUTO) 0.1 X10'3 (0-0.2); BASOPHILS % (AUTO) 0.4 % (0-1); EOSINOPHILS % (AUTO) 0.2 % (0-6); HEMOGLOBIN 9.5 g/dl (14.0-17.9); LYMPHOCYTES # (AUTO) 0.4 X10'3 (1.1-4.8); LYMPHOCYTES % (AUTO) 3.3 % (21-51); MEAN CORPUSCULAR HEMOGLOBIN 24.9 PG (27.0-31.0); MEAN CORPUSCULAR HGB CONC 31.8 g/dL (33.0-36.5); MEAN CORPUSCULAR VOLUME 78.4 FL (78-98); MEAN PLATELET VOLUME 8.6 FL (7.4-10.4); MONOCYTES # (AUTO) 0.7 X10'3 (0-0.9); MONOCYTES % (AUTO) 5.6 % (2-12); NEUTROPHILS # (AUTO) 11.5 X10'3 (1.8-7.7); NEUTROPHILS % (AUTO) 90.5 % (42-75); PLATELET COUNT 164 X10'3 (140-440); RED BLOOD COUNT 3.83 X10'6 (4.70-6.10); RED CELL DISTRIBUTION WIDTH 20.6 % (11.5-14.5); WHITE BLOOD COUNT 12.7 X10'3 (4.5-11.0)
[2019-11-29 03:27] LABS: ALANINE AMINOTRANSFERASE 21 U/L (12-78); ALBUMIN 3.7 G/DL (3.4-5.0); ALBUMIN/GLOBULIN RATIO 0.8 (1.1-1.5); ALKALINE PHOSPHATASE 90 IU/L (46-116); ANION GAP 6 (8-16); ASPARTATE AMINO TRANSFERASE 8 U/L (10-37); BILIRUBIN,TOTAL 0.8 MG/DL (0.1-1.0); BLOOD UREA NITROGEN 29 MG/DL (7-18); BUN/CREATININE RATIO 21.6 (5.4-32.0); CALCIUM 9.1 MG/DL (8.5-10.1); CHLORIDE 101 MMOL/L (99-107); CREATININE 1.34 MG/DL (0.60-1.10); GLUCOSE 362 MG/DL (70-104); POTASSIUM 4.5 MMOL/L (3.5-5.1); SODIUM 137 MMOL/L (135-145); TOTAL CARBON DIOXIDE 29.8 MMOL/L (24-32); TOTAL PROTEIN 8.2 G/DL (6.4-8.2); eGFR 56 ML/MIN
[2019-11-29] MEDS ORDERED: LEVO750T21 PO (04:31)
[2019-11-29 04:44] VITALS: BP 153/65
--- NOTE | 2019-11-30 16:02 | NUR ---
Case management DC follow up: LM/VM rtn call questions/concerns, post DC status
== END 2019-11-29 04:48 | disposition home or self-care (01) ==
LOC: ER 00:55
DX: L03.116 Cellulitis of left lower limb (principal); R07.89 Other chest pain; I12.9 Hypertensive chronic kidney disease with stage 1 through stage 4 chronic kidney disease, or unspecified chronic kidney disease; E11.22 Type 2 diabetes mellitus with diabetic chronic kidney disease; N18.9 Chronic kidney disease, unspecified; E11.42 Type 2 diabetes mellitus with diabetic polyneuropathy; E78.00 Pure hypercholesterolemia, unspecified; J45.909 Unspecified asthma, uncomplicated; K21.9 Gastro-esophageal reflux disease without esophagitis; F32.9 Major depressive disorder, single episode, unspecified; F41.9 Anxiety disorder, unspecified; Z86.2 Personal history of diseases of the blood and blood-forming organs and certain disorders involving the immune mechanism; Z91.013 Allergy to seafood; Z88.8 Allergy status to other drugs, medicaments and biological substances; Z79.82 Long term (current) use of aspirin; Z79.899 Other long term (current) drug therapy; Z79.4 Long term (current) use of insulin
CPT/HCPCS: 36415; 80053; 85025; 96365; 99284; J2543

== ENCOUNTER 2019-12-13 00:40 | Emergency (ER) | payer MEDICARE, MEDICAID ==
[~2019-12-13] VITALS: Ht 172.7 cm; Wt 180.0 kg
[2019-12-13] MEDS ORDERED: nitroGLYCERIN 0.4mg SUBLingual tab SL PRN (00:50)
[2019-12-13] MEDS ORDERED: aspirin 81mg tab.chew PO ONE (00:50)
[2019-12-13] MEDS ORDERED: morphine 4 MG/ML inj SYRINge IV ONE (01:15)
[2019-12-13] MEDS ORDERED: ondansetron/PF 4mg/2ml inj IV ONE ×2 (01:15→04:55)
[2019-12-13 01:21] LABS: EOSINOPHILS # (AUTO) 0.1 X10'3 (0-0.9); HEMOGLOBIN 9.4 g/dl (14.0-17.9); MEAN CORPUSCULAR HEMOGLOBIN 25.4 PG (27.0-31.0); MONOCYTES % (AUTO) 5.6 % (2-12); RED BLOOD COUNT 3.69 X10'6 (4.70-6.10); WHITE BLOOD COUNT 6.2 X10'3 (4.5-11.0)
[2019-12-13 01:22] LABS: BASOPHILS % (AUTO) 0.8 % (0-1); EOSINOPHILS % (AUTO) 1.1 % (0-6); HEMATOCRIT 28.4 % (42.0-52.0); LYMPHOCYTES % (AUTO) 16.7 % (21-51); MEAN CORPUSCULAR VOLUME 77.1 FL (78-98); MEAN PLATELET VOLUME 8.6 FL (7.4-10.4); MONOCYTES # (AUTO) 0.4 X10'3 (0-0.9); NEUTROPHILS # (AUTO) 4.7 X10'3 (1.8-7.7); NEUTROPHILS % (AUTO) 75.8 % (42-75); PLATELET COUNT 136 X10'3 (140-440)
[2019-12-13 01:27] LABS: ALANINE AMINOTRANSFERASE 15 U/L (12-78); ALBUMIN 3.3 G/DL (3.4-5.0); ALBUMIN/GLOBULIN RATIO 0.9 (1.1-1.5); ALKALINE PHOSPHATASE 84 IU/L (46-116); ANION GAP 8 (8-16); ASPARTATE AMINO TRANSFERASE 11 U/L (10-37); BILIRUBIN,TOTAL 0.6 MG/DL (0.1-1.0); BLOOD UREA NITROGEN 12 MG/DL (7-18); CALCIUM 8.9 MG/DL (8.5-10.1); CHLORIDE 104 MMOL/L (99-107); CREATININE 1.09 MG/DL (0.60-1.10); GLUCOSE 267 MG/DL (70-104); POTASSIUM 4.1 MMOL/L (3.5-5.1); SODIUM 141 MMOL/L (135-145); TOTAL CARBON DIOXIDE 28.6 MMOL/L (24-32); TOTAL PROTEIN 6.9 G/DL (6.4-8.2); eGFR 72 ML/MIN
[2019-12-13 01:34] LABS: MAGNESIUM 1.6 MG/DL (1.5-2.4)
[2019-12-13 03:25] LABS: PLATELET ESTIMATE DECREASED
[2019-12-13 03:26] LABS: ANISOCYTOSIS 2+; POIKILOCYTOSIS 1+
--- NOTE | 2019-12-13 03:38 | NUR ---
PATIENT IN BED COVERS ON EYES CLOSED RR EVEN UN LABORED NO OBSERVABLE S/S OF ACUTE STRESS AT THIS TIME, DR. TAYLOR WANTS TO DRAW 3 HR TROPONIN PRIOR TO A POSSIBLE DISCHARGE IF 3 HR TROPONIN IS NEGATIVE
[2019-12-13] MEDS ORDERED: morphine 2 MG/ML inj. syringe IV ONE (04:55)
[2019-12-13 05:44] VITALS: BP 160/90
[2019-12-15] MEDS ORDERED: FERR-106 PO (06:59)
[2019-12-18] MEDS ORDERED: LINE600T11 PO (12:05)
== END 2019-12-13 06:05 | disposition home or self-care (01) ==
LOC: ER 00:41
DX: R07.89 Other chest pain (principal); E11.42 Type 2 diabetes mellitus with diabetic polyneuropathy; E78.00 Pure hypercholesterolemia, unspecified; J45.909 Unspecified asthma, uncomplicated; G47.30 Sleep apnea, unspecified; K21.9 Gastro-esophageal reflux disease without esophagitis; N18.9 Chronic kidney disease, unspecified; I12.9 Hypertensive chronic kidney disease with stage 1 through stage 4 chronic kidney disease, or unspecified chronic kidney disease; E11.22 Type 2 diabetes mellitus with diabetic chronic kidney disease; F41.9 Anxiety disorder, unspecified; F32.9 Major depressive disorder, single episode, unspecified; Z91.013 Allergy to seafood; Z79.82 Long term (current) use of aspirin; Z79.4 Long term (current) use of insulin; Z79.899 Other long term (current) drug therapy
CPT/HCPCS: 36415; 71045; 80053; 83735; 83880; 84484; 85025; 93005; 96374; 96375; 96376; 99285; J2270; J2405

== ENCOUNTER 2020-01-02 19:38 | Emergency (ER) | payer MEDICARE, MEDICAID ==
[~2020-01-02] VITALS: Ht 172.7 cm; Wt 193.0 kg
[~2020-01-02 19:38] MED LIST changes: +FERR-106 PO; +LINE600T11 PO; +MELA3TAB39 PO; -MELA3TAB64 PO
[2020-01-02 20:01] LABS: BASOPHILS # (AUTO) 0.1 X10'3 (0-0.2); BASOPHILS % (AUTO) 1.1 % (0-1); EOSINOPHILS # (AUTO) 0.1 X10'3 (0-0.9); EOSINOPHILS % (AUTO) 1.8 % (0-6); HEMATOCRIT 28.2 % (42.0-52.0); HEMOGLOBIN 9.6 g/dl (14.0-17.9); LYMPHOCYTES # (AUTO) 1.1 X10'3 (1.1-4.8); LYMPHOCYTES % (AUTO) 19.6 % (21-51); MEAN CORPUSCULAR HEMOGLOBIN 26.6 PG (27.0-31.0); MEAN CORPUSCULAR HGB CONC 33.9 g/dL (33.0-36.5); MEAN CORPUSCULAR VOLUME 78.2 FL (78-98); MEAN PLATELET VOLUME 7.2 FL (7.4-10.4); MONOCYTES # (AUTO) 0.4 X10'3 (0-0.9); MONOCYTES % (AUTO) 6.7 % (2-12); NEUTROPHILS # (AUTO) 4.1 X10'3 (1.8-7.7); NEUTROPHILS % (AUTO) 70.8 % (42-75); PLATELET COUNT 144 X10'3 (140-440); RED BLOOD COUNT 3.61 X10'6 (4.70-6.10); RED CELL DISTRIBUTION WIDTH 21.9 % (11.5-14.5); WHITE BLOOD COUNT 5.8 X10'3 (4.5-11.0)
[2020-01-02 20:15] LABS: ALANINE AMINOTRANSFERASE 17 U/L (12-78); ALBUMIN 3.4 G/DL (3.4-5.0); ALBUMIN/GLOBULIN RATIO 0.9 (1.1-1.5); ALKALINE PHOSPHATASE 82 IU/L (46-116); ANION GAP 7 (8-16); ASPARTATE AMINO TRANSFERASE 13 U/L (10-37); BILIRUBIN,TOTAL 0.6 MG/DL (0.1-1.0); BLOOD UREA NITROGEN 12 MG/DL (7-18); BUN/CREATININE RATIO 10.5 (5.4-32.0); CALCIUM 8.9 MG/DL (8.5-10.1); CHLORIDE 106 MMOL/L (99-107); CREATININE 1.14 MG/DL (0.60-1.10); GLUCOSE 232 MG/DL (70-104); POTASSIUM 3.9 MMOL/L (3.5-5.1); SODIUM 141 MMOL/L (135-145); TOTAL CARBON DIOXIDE 28.4 MMOL/L (24-32); TOTAL PROTEIN 7.1 G/DL (6.4-8.2); eGFR 68 ML/MIN
[2020-01-02] MEDS ORDERED: LINE600T11 PO (20:46)
[2020-01-02 20:48] LABS: ANISOCYTOSIS 3+; MICROCYTOSIS 1+; PLATELET ESTIMATE NORMAL; STOMATOCYTES 1+
--- NOTE | 2020-01-02 21:37 | NUR ---
visitor at bedside - pt on cafeteria monitor
[2020-01-02] MEDS ORDERED: hydrALAZINE 20mg/ml inj. IV ONE (21:55)
--- NOTE | 2020-01-02 22:32 | NUR ---
blood pressure readings much better with larger cuff on upper arm - previous cuff was too small for patient - MD aware
[2020-01-02 22:49] VITALS: BP 156/71
== END 2020-01-02 22:51 | disposition home or self-care (01) ==
LOC: ER 19:39
DX: R07.89 Other chest pain (principal); I10 Essential (primary) hypertension; E66.01 Morbid (severe) obesity due to excess calories; E78.00 Pure hypercholesterolemia, unspecified; J45.909 Unspecified asthma, uncomplicated; K21.9 Gastro-esophageal reflux disease without esophagitis; I12.9 Hypertensive chronic kidney disease with stage 1 through stage 4 chronic kidney disease, or unspecified chronic kidney disease; E11.22 Type 2 diabetes mellitus with diabetic chronic kidney disease; N18.9 Chronic kidney disease, unspecified; E11.42 Type 2 diabetes mellitus with diabetic polyneuropathy; Z91.013 Allergy to seafood; Z79.82 Long term (current) use of aspirin; Z79.899 Other long term (current) drug therapy; Z79.4 Long term (current) use of insulin
CPT/HCPCS: 36415; 71045; 80053; 84484; 85025; 93005; 99285

== ENCOUNTER 2020-01-11 07:50 | Day surgery (SDC) | payer MEDICARE, MEDICAID ==
[~2020-01-11] VITALS: Ht 172.7 cm; Wt 195.0 kg
[2020-01-11 08:05] VITALS: BP 139/65
[2020-01-11] MEDS ORDERED: TRAZ-256 PO (08:19)
[2020-01-11] MEDS ORDERED: GEMF600T89 PO (08:20)
[2020-01-11] MEDS ORDERED: GABA800T11 PO (08:20)
[2020-01-11] MEDS ORDERED: GABA-532 PO (08:21)
[2020-01-11] MEDS ORDERED: IRBE75TA8 PO (08:22)
[2020-01-11] MEDS ORDERED: PROP80CA58 PO (08:23)
[2020-01-11] MEDS ORDERED: POTA8CAP20 PO (08:24)
[2020-01-11] MEDS ORDERED: ATOR40TA71 PO (08:24)
[2020-01-11] MEDS ORDERED: TIZA4CAP PO (08:25)
[2020-01-11] MEDS ORDERED: OMEP-50 PO (08:26)
[2020-01-11] MEDS ORDERED: MIDAZolam 5mg/5ml vial ONE (08:37)
[2020-01-11] MEDS ORDERED: fentaNYL/PF 50MCG/1 ML 2ML syringe ONE (08:37)
[2020-01-11] MEDS ORDERED: LIDOcaine Viscous 15ml cup ONE (08:37)
[2020-01-11 09:50] VITALS: BP 134/68
[2020-01-11 10:00] VITALS: BP 132/68
[2020-01-11 10:10] VITALS: BP 136/67
== END 2020-01-11 10:23 | disposition home or self-care (01) ==
LOC: GI LAB 07:50
PROVIDERS: ATTEND Internal Medicine Gastroenterology
DX: R19.5 Other fecal abnormalities (principal); R12 Heartburn; K63.89 Other specified diseases of intestine; K64.0 First degree hemorrhoids; K44.9 Diaphragmatic hernia without obstruction or gangrene; K29.50 Unspecified chronic gastritis without bleeding; K20.8 Other esophagitis
CPT/HCPCS: 43239; 45380; 99153; G0500; J2250; J3010; J7040; 88305; 88313; 88342; 99152; A4620

== ENCOUNTER 2020-07-11 19:52 | Emergency (ER) | payer MEDICARE, MEDICAID ==
[~2020-07-11] VITALS: Ht 172.7 cm; Wt 185.9 kg
[~2020-07-11 19:52] MED LIST changes: -ATOR40TA PO; +ATOR40TA71 PO; -GEMF600T89 PO; +ISOS60TA4 PO; -LINE600T11 PO; -LORA10TA7 PO; +OMEP-50 PO; -OMEP20CA4 PO; -TRAZ-251 PO; +TRAZ-256 PO
[2020-07-11 20:12] LABS: BASOPHILS # (AUTO) 0.1 X10'3 (0-0.2); BASOPHILS % (AUTO) 1.5 % (0-1); EOSINOPHILS # (AUTO) 0.2 X10'3 (0-0.9); EOSINOPHILS % (AUTO) 2.6 % (0-6); HEMATOCRIT 38.2 % (42.0-52.0); HEMOGLOBIN 12.7 g/dl (14.0-17.9); MEAN CORPUSCULAR HEMOGLOBIN 28.5 PG (27.0-31.0); MEAN CORPUSCULAR HGB CONC 33.4 g/dL (33.0-36.5); MEAN CORPUSCULAR VOLUME 85.3 FL (78-98); MEAN PLATELET VOLUME 8.6 FL (7.4-10.4); MONOCYTES # (AUTO) 0.6 X10'3 (0-0.9); MONOCYTES % (AUTO) 8.6 % (2-12); NEUTROPHILS % (AUTO) 58.3 % (42-75); PLATELET COUNT 151 X10'3 (140-440); RED BLOOD COUNT 4.48 X10'6 (4.70-6.10); RED CELL DISTRIBUTION WIDTH 17.7 % (11.5-14.5); WHITE BLOOD COUNT 6.8 X10'3 (4.5-11.0)
[2020-07-11 20:25] LABS: ALANINE AMINOTRANSFERASE 36 U/L (12-78); ALBUMIN 3.3 G/DL (3.4-5.0); ALBUMIN/GLOBULIN RATIO 0.9 (1.1-1.5); ALKALINE PHOSPHATASE 107 IU/L (46-116); ANION GAP 10 (8-16); ASPARTATE AMINO TRANSFERASE 18 U/L (10-37); BILIRUBIN,TOTAL 0.5 MG/DL (0.1-1.0); BLOOD UREA NITROGEN 20 MG/DL (7-18); BUN/CREATININE RATIO 17.5 (5.4-32.0); CALCIUM 8.7 MG/DL (8.5-10.1); CHLORIDE 99 MMOL/L (99-107); CREATININE 1.14 MG/DL (0.60-1.10); GLUCOSE 325 MG/DL (70-104); POTASSIUM 4.1 MMOL/L (3.5-5.1); SODIUM 135 MMOL/L (135-145); TOTAL CARBON DIOXIDE 26.5 MMOL/L (24-32); TOTAL PROTEIN 7.1 G/DL (6.4-8.2); eGFR 68 ML/MIN
[2020-07-11 20:32] LABS: TROPONIN I < 0.04 NG/ML (0.0-0.05)
[2020-07-11] MEDS ORDERED: ketorolac trometh. 30mg/ml inj. IV ONE (20:35)
[2020-07-11 20:48] LABS: D-DIMER < 0.19 MG/L FEU (0-0.50)
[2020-07-11] MEDS ORDERED: ipratropium/albuterol 3ml nebule NEB ONE (20:55)
[2020-07-11 23:03] VITALS: BP 142/76
== END 2020-07-11 23:04 | disposition home or self-care (01) ==
LOC: ER 19:52
DX: R07.89 Other chest pain (principal); R07.81 Pleurodynia; E11.42 Type 2 diabetes mellitus with diabetic polyneuropathy; I25.10 Atherosclerotic heart disease of native coronary artery without angina pectoris; E78.00 Pure hypercholesterolemia, unspecified; I12.9 Hypertensive chronic kidney disease with stage 1 through stage 4 chronic kidney disease, or unspecified chronic kidney disease; J45.909 Unspecified asthma, uncomplicated; G47.30 Sleep apnea, unspecified; K21.9 Gastro-esophageal reflux disease without esophagitis; N18.9 Chronic kidney disease, unspecified; E11.22 Type 2 diabetes mellitus with diabetic chronic kidney disease; F41.9 Anxiety disorder, unspecified; F32.9 Major depressive disorder, single episode, unspecified; Z72.89 Other problems related to lifestyle; Z88.8 Allergy status to other drugs, medicaments and biological substances; Z79.4 Long term (current) use of insulin; Z79.899 Other long term (current) drug therapy
CPT/HCPCS: 36415; 71045; 80053; 83880; 84484; 85025; 85379; 93005; 94640; 96374; 99285; J1885; 94760

== ENCOUNTER 2022-07-13 07:50 | Day surgery (SDC) | payer MEDICARE, MEDICAID ==
[2022-07-07 11:30] LABS: BASOPHILS # (AUTO) 0.1 X10'3 (0-0.2); BASOPHILS % (AUTO) 0.9 % (0-1); EOSINOPHILS # (AUTO) 0.2 X10'3 (0-0.9); EOSINOPHILS % (AUTO) 2.8 % (0-6); LYMPHOCYTES # (AUTO) 1.3 X10'3 (1.1-4.8); LYMPHOCYTES % (AUTO) 15.4 % (21-51); MEAN CORPUSCULAR HEMOGLOBIN 26.1 PG (27.0-31.0); MEAN CORPUSCULAR HGB CONC 32.5 g/dL (33.0-36.5); MEAN CORPUSCULAR VOLUME 80.6 FL (78-98); MONOCYTES # (AUTO) 0.5 X10'3 (0-0.9); MONOCYTES % (AUTO) 6.2 % (2-12); NEUTROPHILS # (AUTO) 6.5 X10'3 (1.8-7.7); NEUTROPHILS % (AUTO) 74.7 % (42-75); PRE OP HEMATOCRIT 36.5 % (42.0-52.0); PRE OP HEMOGLOBIN 11.9 g/dL (14.0-17.9); PRE OP PLATELET COUNT 183 X10'3 (140-440); RED BLOOD COUNT 4.54 X10'6 (4.70-6.10); RED CELL DISTRIBUTION WIDTH 18.2 % (11.5-14.5)
[2022-07-07 11:44] LABS: ALBUMIN 3.6 G/DL (3.4-5.0); ALBUMIN/GLOBULIN RATIO 0.9 (1.1-1.5); ALKALINE PHOSPHATASE 88 IU/L (46-116); BLOOD UREA NITROGEN 12 MG/DL (7-18); BUN/CREATININE RATIO 10.4 (5.4-32.0); CALCIUM 9.4 MG/DL (8.5-10.1); CHLORIDE 102 MMOL/L (99-107); CREATININE 1.15 MG/DL (0.60-1.10); PRE OP ALT 17 U/L (30-65); PRE OP ANION GAP 11 (8-16); PRE OP AST 8 U/L (10-37); PRE OP BILIRUB, TOTAL 0.7 MG/DL (0.0-1.0); PRE OP GLUCOSE 167 MG/DL (70-104); PRE OP POTASSIUM 4.1 MMOL/L (3.4-5.1); PRE OP SODIUM 139 MMOL/L (135-145); TOTAL CARBON DIOXIDE 25.8 MMOL/L (24-32); TOTAL PROTEIN 7.8 G/DL (6.4-8.2); eGFR 67 ML/MIN
[2022-07-13] VITALS (9 sets, daily range): BP systolic 103–147; BP diastolic 49–81
[~2022-07-13] VITALS: Ht 172.7 cm; Wt 168.0 kg
[~2022-07-13 07:50] MED LIST changes: +BUPIVAcaine/PF 2.5 mg/ml (0.25%) 30ml vial ONE; +DOCUMENT DATE & TIME OF BETA-BLOCKER PO ONE; -DULA1.5P SQ; +DULA3PEN SQ; +EMPA25TA PO; -GABA-532 PO; -GARL400T14 PO; +GARL400T15 PO; -ISOS60TA4 PO; +LIDOcaine 0.5% (5mg/ml) 50ml vial ONE; +LORA10TA7 PO; -MAGN100T5 PO; +METF-438 PO; +NALT50TA PO; -OMEP-50 PO; +OMEP20CA16 PO; +PRIM50TA5 PO; +PROP20TA6 PO; -PROP40TA72 PO; +TOPI25TA49 PO; +famotidine 20mg tablet PO ONE; +ringers solution, lacted 1,000 ML IV SCH
[2022-07-13] MEDS ORDERED: fentaNYL/PF 50MCG/1 ML 2ML syringe IV PRN ×2 (08:15)
[2022-07-13] MEDS ORDERED: morphine 2 MG/ML inj. syringe IV PRN (08:15)
[2022-07-13] MEDS ORDERED: hydrALAZINE 20mg/ml inj. IV PRN (08:15)
[2022-07-13] MEDS ORDERED: morphine 4 MG/ML inj SYRINge IV PRN (08:15)
[2022-07-13] MEDS ORDERED: ondansetron/PF 4mg/2ml inj IV PRN (08:15)
[2022-07-13] MEDS ORDERED: labetalol 20mg/4ml (5mg/ml) syringe IV PRN (08:15)
[2022-07-13] MEDS ORDERED: ringers solution, lacted 1,000 ML IV SCH (08:15)
[2022-07-13] MEDS ORDERED: ceFAZolin inj. 3,000 MG in normal saline 100ml IV soln 100 ML IV ONE ×2 (08:30→08:31)
[2022-07-13] MEDS ORDERED: CEFAZOLIN IV ONE (08:30)
[2022-07-13] MEDS ORDERED: WATER IV ONE (08:30)
[2022-07-13] MEDS ORDERED: DEXTROSE 5% IV ONE (08:30)
[2022-07-13] MEDS ORDERED: BUPIVAcaine/PF 2.5 mg/ml (0.25%) 30ml vial ONE (11:55)
[2022-07-13] MEDS ORDERED: fentaNYL/PF 50MCG/1 ML 2ML syringe ONE ×2 (11:59→12:38)
[2022-07-13] MEDS ORDERED: MIDAZolam 1 MG/ML 5ML VIAL ONE (12:00)
--- NOTE | 2022-07-13 14:07 | NUR ---
ALL DISCHARGE CRITERIA HAS BEEN MET. VSS, PAIN AT A TOLERABLE LEVEL, ABLE TO SAFELY AMBULATE AND TRANSFER SELF. IV TAKEN OUT WITHOUT ANY COMPLICATIONS. ALL DISCHARGE INSTRUCTIONS COVERED WITH PATIENT AND ALL QUESTIONS ANSWERED. PATIENT TAKEN OUT VIA WHEELCHAIR WITH ALL BELONGINGS TO PERSONAL VEHICLE WHERE FAMILY DROVE PATIENT HOME. Addendum: 07/13/22 at 1419 by Chris Vasquez RN Amended: Links added.
== END 2022-07-13 14:07 | disposition home or self-care (01) ==
LOC: PAS 07:50
PROVIDERS: ATTEND Orthopaedic Surgery Hand Surgery
DX: G56.02 Carpal tunnel syndrome, left upper limb (principal); G56.22 Lesion of ulnar nerve, left upper limb; F17.210 Nicotine dependence, cigarettes, uncomplicated; J44.9 Chronic obstructive pulmonary disease, unspecified; E11.42 Type 2 diabetes mellitus with diabetic polyneuropathy; F32.9 Major depressive disorder, single episode, unspecified; E66.01 Morbid (severe) obesity due to excess calories; G47.30 Sleep apnea, unspecified; G62.9 Polyneuropathy, unspecified; I10 Essential (primary) hypertension; Z79.899 Other long term (current) drug therapy; Z98.890 Other specified postprocedural states; Z91.013 Allergy to seafood
CPT/HCPCS: 29848; 36415; 64718; 80053; 82948; 85025; 87811; 93005; A6222; J2250; J3010; J3490; J7030; J7120; Z7506; Z7512; A4215; A6449; A7000; J0690; J7060

== ENCOUNTER 2022-08-17 10:18 | Day surgery (SDC) | payer MEDICARE, MEDICAID ==
[2022-08-10 15:37] LABS: BASOPHILS # (AUTO) 0.1 X10'3 (0-0.2); BASOPHILS % (AUTO) 0.8 % (0-1); EOSINOPHILS # (AUTO) 0.1 X10'3 (0-0.9); EOSINOPHILS % (AUTO) 1.4 % (0-6); LYMPHOCYTES # (AUTO) 1.2 X10'3 (1.1-4.8); LYMPHOCYTES % (AUTO) 18.3 % (21-51); MEAN CORPUSCULAR HEMOGLOBIN 26.6 PG (27.0-31.0); MEAN CORPUSCULAR HGB CONC 33.4 g/dL (33.0-36.5); MEAN CORPUSCULAR VOLUME 79.7 FL (78-98); MEAN PLATELET VOLUME 7.8 FL (7.4-10.4); MONOCYTES # (AUTO) 0.5 X10'3 (0-0.9); MONOCYTES % (AUTO) 7.3 % (2-12); NEUTROPHILS # (AUTO) 4.7 X10'3 (1.8-7.7); NEUTROPHILS % (AUTO) 72.2 % (42-75); PRE OP HEMATOCRIT 33.5 % (42.0-52.0); PRE OP HEMOGLOBIN 11.2 g/dL (14.0-17.9); PRE OP PLATELET COUNT 210 X10'3 (140-440)
[2022-08-10 15:57] LABS: ALBUMIN 3.2 G/DL (3.4-5.0); ALBUMIN/GLOBULIN RATIO 0.7 (1.1-1.5); ALKALINE PHOSPHATASE 95 IU/L (46-116); BLOOD UREA NITROGEN 10 MG/DL (7-18); BUN/CREATININE RATIO 9.9 (5.4-32.0); CALCIUM 8.7 MG/DL (8.5-10.1); CHLORIDE 106 MMOL/L (99-107); CREATININE 1.01 MG/DL (0.60-1.10); PRE OP ALT 16 U/L (30-65); PRE OP ANION GAP 9 (8-16); PRE OP AST 13 U/L (10-37); PRE OP BILIRUB, TOTAL 0.8 MG/DL (0.0-1.0); PRE OP GLUCOSE 175 MG/DL (70-104); PRE OP SODIUM 138 MMOL/L (135-145); TOTAL CARBON DIOXIDE 22.7 MMOL/L (24-32); TOTAL PROTEIN 7.5 G/DL (6.4-8.2); eGFR 77 ML/MIN
[~2022-08-17] VITALS: Ht 172.7 cm; Wt 169.8 kg
[2022-08-17] VITALS (9 sets, daily range): BP systolic 107–140; BP diastolic 54–67
[~2022-08-17 10:18] MED LIST changes: -ATOR40TA71 PO; -BUDE10.2 PO; -CHOL100046 PO; +FLUT15CR7 TOP; -GARL400T15 PO; +HYDR-3965 PO; -LIDOcaine 0.5% (5mg/ml) 50ml vial ONE; -MELA3TAB39 PO; -OMEG1CAP2 PO; -TIZA4CAP PO; -VIT1TABL83 PO; -VITC500T PO; +ceFAZolin inj. 2,000 MG in dextrose 5%-water 100 ML IV ONE
[2022-08-17] MEDS ORDERED: midazolam 1 mg/ML 2ml injection ONE (11:21)
[2022-08-17] MEDS ORDERED: fentaNYL/PF 50MCG/1 ML 2ML syringe ONE (11:21)
[2022-08-17] MEDS ORDERED: LIDOcaine 0.5% (5mg/ml) 50ml vial ONE (11:24)
[2022-08-17] MEDS ORDERED: propofol inj 20 ML IV ONE ×2 (11:31→11:50)
[2022-08-17] MEDS ORDERED: meperidine/PF 25mg/ml syringe IV PRN ×3 (11:45)
[2022-08-17] MEDS ORDERED: ondansetron/PF 4mg/2ml inj IV PRN (11:45)
[2022-08-17] MEDS ORDERED: morphine 2 MG/ML inj. syringe IV PRN (11:45)
[2022-08-17] MEDS ORDERED: morphine 4 MG/ML inj SYRINge IV PRN (11:45)
[2022-08-17] MEDS ORDERED: ringers solution, lacted 1,000 ML IV SCH (11:45)
[2022-08-17] MEDS ORDERED: proCHLORperazine 10 MG/2 ml inj IV PRN (11:45)
--- NOTE | 2022-08-17 12:06 | NUR ---
Received from OR via , accompanied by Anesthesiologist ANDREW and OR NURSE report given by Anesthesiolgist. PT IS DROWSY YET RESPONDS TO VERBAL STIMULI. DENIES PAIN OR DISCOMFORT. VSS; NOT NEEDING 02 UPON ARRIVAL TO UNIT. DRESSING TO RT ARM CDI. Addendum: 08/17/22 at 1224 by Lucy Griggs RN Amended: Links added.
--- NOTE | 2022-08-17 13:26 | NUR ---
PATIENT A&OX4, DENIES PAIN, V/S WNL, SCD OFF, 20G TO JAKOBE D/C, RIGHT WRIST DRESSING CDI = RT ELBOW DRESSING CDI. ICE AND ELEVATED RUE. I HAVE REVIEWED D/C INSTRUCTIONS WITH PATIENT and they have verbalized understanding patient d/c home with all belongings and family gave transport home. NURSE ASSISTED PT INTO PRIVATE VEHICLE AND SECURED SEAT BELT. Addendum: 08/17/22 at 1333 by Lucy Griggs RN Amended: Links added.
== END 2022-08-17 13:26 | disposition home or self-care (01) ==
LOC: PAS 10:18
PROVIDERS: ATTEND Orthopaedic Surgery Hand Surgery
DX: G56.01 Carpal tunnel syndrome, right upper limb (principal); G56.21 Lesion of ulnar nerve, right upper limb; F17.210 Nicotine dependence, cigarettes, uncomplicated; I10 Essential (primary) hypertension; Z91.013 Allergy to seafood; F32.9 Major depressive disorder, single episode, unspecified; E66.01 Morbid (severe) obesity due to excess calories; E11.40 Type 2 diabetes mellitus with diabetic neuropathy, unspecified; Z79.4 Long term (current) use of insulin; Z79.899 Other long term (current) drug therapy; Z98.890 Other specified postprocedural states
CPT/HCPCS: 36415; 64718; 64721; 80053; 82948; 85025; A6222; J0690; J2250; J2704; J3010; J3490; J7030; J7060; J7120; Z7506; Z7512; A4215; A6449; A7000

== ENCOUNTER 2022-08-27 14:40 | Emergency (ER) | payer MEDICARE, MEDICAID ==
[~2022-08-27] VITALS: Ht 172.7 cm; Wt 170.0 kg
[~2022-08-27 14:40] MED LIST changes: -BUPIVAcaine/PF 2.5 mg/ml (0.25%) 30ml vial ONE; -DOCUMENT DATE & TIME OF BETA-BLOCKER PO ONE; -ceFAZolin inj. 2,000 MG in dextrose 5%-water 100 ML IV ONE; -famotidine 20mg tablet PO ONE; -ringers solution, lacted 1,000 ML IV SCH
[2022-08-27 14:42] VITALS: BP 127/67
== END 2022-08-27 15:15 | disposition home or self-care (01) ==
LOC: ER 14:41
DX: T81.9XXA Unspecified complication of procedure, initial encounter (principal); E78.00 Pure hypercholesterolemia, unspecified; J45.909 Unspecified asthma, uncomplicated; K21.9 Gastro-esophageal reflux disease without esophagitis; E13.22 Other specified diabetes mellitus with diabetic chronic kidney disease; I13.2 Hypertensive heart and chronic kidney disease with heart failure and with stage 5 chronic kidney disease, or end stage renal disease; N18.6 End stage renal disease; I50.9 Heart failure, unspecified; Z91.013 Allergy to seafood; Z79.82 Long term (current) use of aspirin; Z79.899 Other long term (current) drug therapy
CPT/HCPCS: 12001; 29125; 99282; 99283

== ENCOUNTER 2022-12-05 17:20 | Emergency (ER) | payer MEDICARE, MEDICAID ==
[~2022-12-05] VITALS: Ht 172.7 cm; Wt 167.3 kg
[2022-12-06] MEDS ORDERED: LEVO750T68 PO (01:04)
[2022-12-06] MEDS ORDERED: levoFLOXACIN 750MG TABLET PO ONE (01:05)
[2022-12-06 01:27] VITALS: BP 140/66
== END 2022-12-06 02:18 | disposition home or self-care (01) ==
LOC: ER 17:21
DX: E11.621 Type 2 diabetes mellitus with foot ulcer (principal); G89.29 Other chronic pain; L03.115 Cellulitis of right lower limb; I25.10 Atherosclerotic heart disease of native coronary artery without angina pectoris; E78.00 Pure hypercholesterolemia, unspecified; G47.30 Sleep apnea, unspecified; K21.9 Gastro-esophageal reflux disease without esophagitis; F41.9 Anxiety disorder, unspecified; I12.9 Hypertensive chronic kidney disease with stage 1 through stage 4 chronic kidney disease, or unspecified chronic kidney disease; N18.9 Chronic kidney disease, unspecified; Z98.890 Other specified postprocedural states; Z72.89 Other problems related to lifestyle; Z91.013 Allergy to seafood; Z79.82 Long term (current) use of aspirin; Z79.4 Long term (current) use of insulin; Z79.899 Other long term (current) drug therapy
CPT/HCPCS: 82948; 99284; A6223; A6446; A6449

== ENCOUNTER 2025-08-09 08:50 | Outpatient (CLI) | payer MEDICARE, MEDICAID ==
[2025-08-09] VITALS (9 sets, daily range): BP systolic 118–171; BP diastolic 63–81; PULSE 77–86
[~2025-08-09 08:50] MED LIST changes: +GABA-1555 PO; -GABA800T11 PO; +IRBE75TA15 PO; -IRBE75TA8 PO; -NALT50TA PO; +NALT50TA5 PO; +TOPI-255 PO; -TOPI25TA49 PO
--- NOTE | 2025-08-11 12:38 | CARDIOLOGY REPORT ---
DATE OF SERVICE: 08/09/2025 DICTATING PHYSICIAN: Atul Nieves MD DATE OF STUDY: 08/09/2025 DESCRIPTION: The patient underwent tilt table testing per protocol. During testing, he remained clinically stable. However, 20 minutes into the test, the patient did not respond to any questioning. Was placed supine and during orthostatics, the patient had a syncopal episode. When standing up again, the patient had another syncopal episode and was discharged by EMS to [facility]. The patient remained hemodynamically stable throughout the test. However, towards the end of the test, he did not respond to questioning. Blood pressure and pulse were stable. When placed in a standing position, the patient had a syncopal episode. After approximately 5 minutes, when placing in a stand position again, the patient had another syncopal episode. In view of his symptoms, he was transported to [facility] by EMS. Atul Nieves MD TID: [id number] RECEIPT: [id number] SEKOU/CORNEL
== END 2025-08-09 23:59 | disposition home or self-care (01) ==
LOC: CARD DIAG 08:50
PROVIDERS: ATTEND Student in an Organized Health Care Education/Training Program
DX: R42 Dizziness and giddiness (principal)
CPT/HCPCS: 93660